=== PATIENT | female | born 1955 | race Caucasian/White ===

== ENCOUNTER 2020-06-05 14:37 | Inpatient (IN) | payer BC, SELFPAY ==
[2020-06-05] VITALS (23 sets, daily range): BP systolic 133–201; BP diastolic 60–95; PULSE 57–97; RESP 16–33; TEMP 36.4–37.1; O2SAT 88–100; BMI 26.4
[2020-06-05 15:38] LABS: Prothrombin Time 11.3 SECONDS (10.1-12.7)
[2020-06-05] MEDS: SODIUM CHLORIDE 0.9% 1,000 ML 1000 ML IV ×2 (15:40→17:19)
[2020-06-05] MEDS: ONDANSETRON 4 MG/2 ML INJ IV (15:40)
[2020-06-05 15:41] LABS: PTT Partial Thromboplastin Tim 18 SECONDS (26.4-36.2)
[2020-06-05 15:43] LABS: Add Manual Diff / Slide Review NO; Basophils Absolute Auto 0 /uL (0-100); Basophils Percent Auto 0.3 % (0-2); Eosinophils Absolute Auto 100 /uL (0-450); Eosinophils Percent Auto 0.4 % (2-4); Hematocrit 45.1 % (36-46); Hemoglobin 15.4 g/dL (12.0-16.0); Lymphocytes Absolute Auto 700 /uL (1100-4500); Lymphocytes Percent Auto 4.6 % (25-40); Mean Corpuscular HGB Conc 34.2 % (30-36); Mean Corpuscular Hemoglobin 30.9 PG (26-34); Mean Corpuscular Volume 90.6 fL (80-100); Monocytes Absolute Auto 400 /uL (0-900); Neutrophils Absolute Auto 13000 /uL (1500-7000); Neutrophils Percent Auto 91.7 % (50-75); Platelet Count 253 X10^3/uL (150-400); Red Blood Cell Count 4.98 X10^6/uL (4.0-5.2); Red Cell Distribution Width 13.8 % (11.6-14.8); White Blood Cell Count 14.2 X10^3/uL (4.5-11.0)
--- NOTE | 2020-06-05 16:05 | DI.US.S_ITS ---
PROCEDURE: US ABDOMEN LIMITED INDICATIONS: RIGHT UPPER QUADRANT PAIN TECHNIQUE: Real-time focused scanning was performed of the abdomen, with image documentation. COMPARISON: None. FINDINGS: The liver is normal in size and demonstrates no focal lesions. No findings of gallstones or sludge are seen. The gallbladder wall is not thickened, measuring 3 mm or less. No specific pericholecystic fluid is seen. The sonographic Aglvin sign is negative. There is no biliary dilatation, the common bile duct measures 5 mm. The pancreas is not well seen. A minimal amount of free fluid can be seen within the right upper quadrant and within the left lower quadrant. IMPRESSION: The gallbladder demonstrates a normal sonographic appearance. No biliary dilatation is seen. A minimal amount of ascites is seen. Dictated by: Dorian Tavarez M.D. on 06/05/2020 at 16:27 Approved by: Dorian Tavarez M.D. on 06/05/2020 at 16:28
[2020-06-05 16:24] LABS: Creatine Kinase 55 U/L (30-135)
[2020-06-05 16:29] LABS: RBC Urine None Seen (0-5/HPF)
[2020-06-05 16:30] LABS: Appearance Urine UA CLOUDY; Bilirubin Urine UA NEGATIVE (NEGATIVE); Color Urine UA YELLOW; Glucose Urine UA NEGATIVE (Negative); Ketones Urine UA 3+ (NEGATIVE); Leukocyte Esterase Urine UA 1+ (NEGATIVE); Nitrite Urine UA NEGATIVE (Negative); Occult Blood Urine UA TRACE-LYSED (Negative); Protein Urine UA 1+ (Negative); Specific Gravity Urine UA >=1.030 (1.000-1.035); Urobilinogen Urine UA 0.2 E.U./dL (0.2)
[2020-06-05 16:37] LABS: pH Urine UA 5.5 (4.5-8.0)
[2020-06-05 16:37] LABS: Troponin I 0.014 ng/mL (0.01-0.034)
[2020-06-05 16:39] LABS: Bacteria Urine Many (>30); Culture Indicated Urine Specimen Cultured; Squamous Epithelial Cell Urine 0-1 /HPF (0-5/HPF); WBC Urine 10-30/HPF (0-5/HPF)
[2020-06-05 16:43] LABS: Amylase 3418 U/L (30-110)
[2020-06-05 16:47] LABS: Alanine Aminotransferase 77 IU/L (<35); Albumin 4.5 g/dL (3.5-5.0); Alkaline Phosphatase 89 U/L (38-126); Aspartate Aminotransferase 92 IU/L (14-36); BUN Creatinine Ratio 22.2 (6-22); Bilirubin Total 0.8 mg/dL (0.2-1.3); Blood Urea Nitrogen 16 mg/dL (7-17); Calcium 9.5 mg/dL (8.4-10.2); Carbon Dioxide 28 mmol/L (22-32); Chloride 103 mmol/L (98-107); Estimated Glomerular Filt Rate > 60.0 mL/min (>60); Globulin 4.4 g/dL (1.7-4.1); Glucose 166 mg/dL (80-110); Potassium 4.3 mmol/L (3.4-5.1); Sodium 138 mmol/L (137-145); Total Protein 8.9 g/dL (6.3-8.2)
[2020-06-05 16:50] LABS: HEMOLYSIS 114 (0-50)
--- NOTE | 2020-06-05 17:13 | DI.CT.S_ITS ---
PROCEDURE: CT ABDOMEN PELVIS W CON INDICATIONS: elevated lipase, amylase, abd pain TECHNIQUE: After the administration of intravenous contrast, 5 mm thick sections acquired from the diaphragm to the symphysis. 5 mm coronal and sagittal reformats were acquired. For radiation dose reduction, the following was used: automated exposure control, adjustment of mA and/or kV according to patient size. COMPARISON: None. FINDINGS: Image quality: Excellent. ABDOMEN: Lung bases: Mild dependent atelectasis is seen. Heart size is normal. Solid organs: In this patient with this given history, scrutiny is given to the pancreas. Moderate inflammatory changes are seen surrounding the pancreas. The pancreas demonstrates normal enhancement, without necrotic areas. No pancreatic ductal dilatation is seen. No peripancreatic fluid collection can be seen. Liver is normal in size and enhancement. Gallbladder demonstrates no significant abnormality. Biliary system is non dilated. Pancreas enhances normally. Spleen is normal in size and enhancement. Incidental note is made of an accessory splenule along the inferior aspect of the primary spleen. Kidneys demonstrate normal size and enhancement, without hydronephrosis. A simple cyst is seen along the lateral aspect of the left kidney, that measures 2.1 cm. Left renal parapelvic cysts are also seen. Peritoneum and bowel: Bowel loops demonstrate normal wall thickness and caliber. No free air. Mild free fluid can be seen, primarily within the right upper quadrant and along the right-sided the abdomen. No loculated abscess can be seen. A normal appendix is incidentally noted. Nodes and vessels: No retroperitoneal or mesenteric adenopathy by size criteria. Aorta and inferior vena cava are normal in size. Miscellaneous: A mild periumbilical hernia is seen, containing fat. PELVIS: Genitourinary: Bladder wall thickness is normal. The uterus is abnormal, with an apparent 10.6 cm fibroid, which composed is the majority of the uterus itself. No cliff adnexal masses are seen. A pessary can be seen. Miscellaneous: No inguinal hernias or adenopathy. Bones: No suspicious bony lesions. No vertebral body compression fractures. Focal L5-S1 degenerative change is seen. Milder degenerative changes are seen elsewhere. IMPRESSION: Pancreatitis. No findings of pancreatic necrosis or loculated pseudocyst can be seen. There is a mild degree of ascites, which is likely related to the pancreatitis. Large fibroid uterus, with an associated pessary. Incidental note is made of: Simple appearing left renal cysts Accessory splenule Fat containing periumbilical hernia Focal L5-S1 degenerative change Normal appendix Dictated by: Dorian Tavarez M.D. on 06/05/2020 at 16:48 Approved by: Dorian Tavarez M.D. on 06/05/2020 at 16:54
[2020-06-05 17:31] LABS: Lipase 30032 U/L (23-300)
--- NOTE | 2020-06-05 19:05 | ED_ITS ---
HPI - Abdominal Pain <JARED Mukherjee - Last Filed: 06/05/20 20:04> General Chief Complaint: Abdominal Pain Stated Complaint: Stomach hurts, hot and cold flashes Time Seen by Provider: 06/05/20 14:41 Source: patient Mode of arrival: Ambulatory Limitations: no limitations History of Present Illness HPI narrative: The patient is a 64-year-old female nonsmoker with history of hypertension, tonsillectomy, ear tubes and vestibular migraines who presents with a chief complaint of abdominal pain. She has had epigastric abdominal pain on and off for the past few weeks, when she wakes up in the morning. Then it goes away. However this morning it did not go away. She has had epigastric pain since 5:00 a.m.. She complains of nausea, no vomiting, no fevers overall feels pretty run down. She states her last bowel movement was a few days ago which is normal for her and her bowel movements normal. She denies any dysuria urgency or frequency. She denies any history of abdominal surgeries or any abdominal specific medical history. She does not drink alcohol or use any illicit substances. She states overall she is ?pretty healthy.The patient is traveling from [place] at this point time. Related Data Home Medications Medication Instructions Recorded Confirmed amitriptyline 12.5 mg PO DAILY 06/05/20 06/05/20 erenumab-aooe [Aimovig 70 mg SUBCUT QMONTH 06/05/20 06/05/20 Autoinjector] losartan 06/05/20 meclizine 25 mg PO DAILY 06/05/20 06/05/20 Review of Systems <JARED Mukherjee - Last Filed: 06/05/20 20:04> Review of Systems Narrative: GENERAL: Denies chills, fatigue, malaise, fever, sweats. HEENT: Denies sinus pain, ear pain, sore throat, difficulty swallowing, dizziness. RESPIRATORY: Denies dyspnea, cough, wheezing, hemoptysis, sputum. CARDIOVASCULAR: Denies chest pain, palpitations, orthopnea, edema, GASTROINTESTINAL: See HPI : Denies dysuria, frequency, incontinence, hematuria, urinary retention. MUSCULOSKELETAL: denies weakness, joint pain, or bony pain SKIN: Denies rash, skin lesions, or other NEUROLOGIC: Denies weakness, headache, numbness, change in speech, confusion, seizures, incoordination. PSYCHIATRIC: No concerning psychosocial issues. 12 point review of systems is negative except for those stated above Patient History <JARED Mukherjee - Last Filed: 06/05/20 20:04> Medical History (Updated 06/05/20 @ 19:08 by AJRED Mukherjee) Vestibular migraine (Acute) Surgical History (Updated 06/05/20 @ 19:08 by JARED Mukherjee) Hx of tonsillectomy (Acute) Social History Smoking Status: Never smoker Smoking Status: Never smoker alcohol intake frequency: 0-2 drinks per day Substance Use Type: does not use Exam <JARED Mukherjee - Last Filed: 06/05/20 20:04> Narrative Exam Narrative: GENERAL: This is a well-nourished, well-developed patient, no acute distress HEAD: Atraumatic. Normocephalic. No temporal or scalp tenderness. EYES: Pupils equal round and reactive. Extraocular motions intact. No scleral icterus. No injection or drainage. ENT: Nose without bleeding, purulent drainage or septal hematoma. Throat without erythema, tonsillar hypertrophy or exudate. Uvula midline. Airway patent. NECK: Trachea midline. No JVD or lymphadenopathy. Supple, nontender, no meningeal signs. CARDIOVASCULAR: Regular rate and rhythm RESPIRATORY: Clear to auscultation. Breath sounds equal bilaterally. No wheezes, rales, or rhonchi. GASTROINTESTINAL: Abdomen soft, epigastric tenderness to palpation with right upper quadrant tenderness to palpation, nondistended. No hepato-splenomegaly, or palpable masses. Positive Galvin sign. EXTREMITIES: No clubbing, cyanosis, or edema. No joint tenderness, effusion, or edema noted. BACK: Nontender without deformity or crepitance. No flank tenderness. NEURO: AOx3. SKIN: No rash or erythema on visible skin Initial Vital Signs Initial Vital Signs: Vital Signs Pulse Oximetry 88 L 06/05/20 14:41 <Kelvin Agrawal DO - Last Filed: 06/05/20 20:19> Initial Vital Signs Initial Vital Signs: Vital Signs Pulse Oximetry 88 L 06/05/20 14:41 Scores <JARED Mukherjee - Last Filed: 06/05/20 20:04> GCS Kaylee coma scale eye opening: Spontaneous Fitzgerald coma scale verbal response: Orientated Kaylee coma scale motor response: Obey commands Fitzgerald coma scale total score: 15 Course <Varsha SimeonMARY dixon-BC - Last Filed: 06/05/20 20:04> Orders Ordered: ED Orders 06/05/20 14:56 EKG-12 Lead Stat 06/05/20 15:18 Partial Thromboplastin Time Stat Prothrombin Time INR Stat 06/05/20 15:36 Amylase Stat Complete Blood Count AUTO DIFF Stat Comprehensive Metabolic Panel Stat Lipase Stat Troponin & CK Cardiac Panel Stat 06/05/20 16:05 US abdomen limited Stat 06/05/20 16:14 Urinalysis and Microscopic Stat Urine Culture Stat 06/05/20 17:13 CT abdomen pelvis w con Stat Acetaminophen (Tylenol) 650 mg PO Q6HR PRN PRN Reason: Fever/Mild Pain (1-3) Bisacodyl (Dulcolax) 10 mg MA DAILY PRN PRN Reason: Constipation Dextrose (D50w) 25 gm IV PRN PRN; Protocol PRN Reason: Hypoglycemia Heparin Sodium (Porcine) (Heparin) 5,000 unit SUBCUT BID CHELSEA Sodium Chloride (Normal Saline 0.9%) 1,000 mls @ 250 mls/hr IV CONT CHELSEA Last Admin: 06/05/20 19:06 Dose: 250 mls/hr Documented by: BENITA Ceftriaxone Sodium/Dextrose (Rocephin) 1 gm in 50 mls @ 100 mls/hr IV NOW ONE Stop: 06/05/20 20:21 Last Admin: 06/05/20 20:02 Dose: 100 mls/hr Documented by: BENITA Sodium Chloride (Normal Saline 0.9%) 1,000 mls @ 150 mls/hr IV CONT CHELSEA Insulin Aspart (Novolog Flexpen) 0 unit SUBCUT ACHS CHELSEA; Protocol Ketorolac Tromethamine (Toradol) 15 mg IV Q6HR PRN PRN Reason: Pain, Moderate (4-6) Stop: 06/10/20 20:12 Naloxone HCl (Narcan) 0.2 mg IV Q2MIN PRN PRN Reason: Opiate Reversal Ondansetron HCl (Zofran) 4 mg IV Q6HR PRN PRN Reason: Nausea And Vomiting Discontinued Medications Sodium Chloride (Normal Saline 0.9%) 1,000 mls @ 1,000 mls/hr IV BOLUS ONE Stop: 06/05/20 15:55 Last Infusion: 06/05/20 16:51 Dose: 0 mls/hr Documented by: Admin: 06/05/20 15:40 Dose: 1,000 mls/hr Documented by: BENITA Sodium Chloride (Normal Saline 0.9%) 1,000 mls @ 1,000 mls/hr IV BOLUS ONE Stop: 06/05/20 18:12 Last Infusion: 06/05/20 19:01 Dose: 0 mls/hr Documented by: Admin: 06/05/20 17:19 Dose: 1,000 mls/hr Documented by: BENITA Ondansetron HCl (Zofran) 4 mg IV NOW ONE Stop: 06/05/20 14:57 Last Admin: 06/05/20 15:40 Dose: 4 mg Documented by: BENITA Vital Signs Vital signs: Vital Signs - 8 hr 06/05/20 14:41 06/05/20 14:42 06/05/20 14:44 Temperature 98.8 F Pulse Rate 60 60 Respiratory Rate 18 Blood Pressure 133/60 133/60 Pulse Oximetry 88 L 98 98 06/05/20 15:00 06/05/20 15:30 06/05/20 16:00 Temperature Pulse Rate 61 58 L 91 H Respiratory Rate 21 22 33 H Blood Pressure 144/65 H Pulse Oximetry 98 98 98 06/05/20 16:30 06/05/20 17:00 06/05/20 17:39 Temperature Pulse Rate 57 L 57 L 74 Respiratory Rate 21 16 25 H Blood Pressure Pulse Oximetry 100 99 06/05/20 18:00 06/05/20 18:13 06/05/20 18:19 Temperature Pulse Rate 74 77 62 Respiratory Rate 22 25 H 19 Blood Pressure 183/94 H 183/85 H Pulse Oximetry 99 100 99 06/05/20 18:30 06/05/20 18:40 06/05/20 19:00 Temperature Pulse Rate 97 H 86 76 Respiratory Rate 21 22 23 Blood Pressure 188/95 H 159/91 H Pulse Oximetry 99 99 99 06/05/20 19:30 06/05/20 19:31 06/05/20 20:00 Temperature Pulse Rate 74 64 68 Respiratory Rate 27 H 25 H 21 Blood Pressure 180/84 H 201/83 H Pulse Oximetry 99 100 <Kelvin Nghia, DO - Last Filed: 06/05/20 20:19> Orders Ordered: ED Orders 06/05/20 14:56 EKG-12 Lead Stat 06/05/20 15:18 Partial Thromboplastin Time Stat Prothrombin Time INR Stat 06/05/20 15:36 Amylase Stat Complete Blood Count AUTO DIFF Stat Comprehensive Metabolic Panel Stat Lipase Stat Troponin & CK Cardiac Panel Stat 06/05/20 16:05 US abdomen limited Stat 06/05/20 16:14 Urinalysis and Microscopic Stat Urine Culture Stat 06/05/20 17:13 CT abdomen pelvis w con Stat Acetaminophen (Tylenol) 650 mg PO Q6HR PRN PRN Reason: Fever/Mild Pain (1-3) Bisacodyl (Dulcolax) 10 mg MA DAILY PRN PRN Reason: Constipation Dextrose (D50w) 25 gm IV PRN PRN; Protocol PRN Reason: Hypoglycemia Heparin Sodium (Porcine) (Heparin) 5,000 unit SUBCUT BID CHELSEA Sodium Chloride (Normal Saline 0.9%) 1,000 mls @ 250 mls/hr IV CONT CHELSEA Last Admin: 06/05/20 19:06 Dose: 250 mls/hr Documented by: BENITA Ceftriaxone Sodium/Dextrose (Rocephin) 1 gm in 50 mls @ 100 mls/hr IV NOW ONE Stop: 06/05/20 20:21 Last Admin: 06/05/20 20:02 Dose: 100 mls/hr Documented by: BENITA Sodium Chloride (Normal Saline 0.9%) 1,000 mls @ 150 mls/hr IV CONT CHELSEA Insulin Aspart (Novolog Flexpen) 0 unit SUBCUT ACHS CHELSEA; Protocol Ketorolac Tromethamine (Toradol) 15 mg IV Q6HR PRN PRN Reason: Pain, Moderate (4-6) Stop: 06/10/20 20:12 Naloxone HCl (Narcan) 0.2 mg IV Q2MIN PRN PRN Reason: Opiate Reversal Ondansetron HCl (Zofran) 4 mg IV Q6HR PRN PRN Reason: Nausea And Vomiting Discontinued Medications Sodium Chloride (Normal Saline 0.9%) 1,000 mls @ 1,000 mls/hr IV BOLUS ONE Stop: 06/05/20 15:55 Last Infusion: 06/05/20 16:51 Dose: 0 mls/hr Documented by: Admin: 06/05/20 15:40 Dose: 1,000 mls/hr Documented by: BENITA Sodium Chloride (Normal Saline 0.9%) 1,000 mls @ 1,000 mls/hr IV BOLUS ONE Stop: 06/05/20 18:12 Last Infusion: 06/05/20 19:01 Dose: 0 mls/hr Documented by: Admin: 06/05/20 17:19 Dose: 1,000 mls/hr Documented by: BENITA Ondansetron HCl (Zofran) 4 mg IV NOW ONE Stop: 06/05/20 14:57 Last Admin: 06/05/20 15:40 Dose: 4 mg Documented by: BENITA Vital Signs Vital signs: Vital Signs - 8 hr 06/05/20 14:41 06/05/20 14:42 06/05/20 14:44 Temperature 98.8 F Pulse Rate 60 60 Respiratory Rate 18 Blood Pressure 133/60 133/60 Pulse Oximetry 88 L 98 98 06/05/20 15:00 06/05/20 15:30 06/05/20 16:00 Temperature Pulse Rate 61 58 L 91 H Respiratory Rate 21 22 33 H Blood Pressure 144/65 H Pulse Oximetry 98 98 98 06/05/20 16:30 06/05/20 17:00 06/05/20 17:39 Temperature Pulse Rate 57 L 57 L 74 Respiratory Rate 21 16 25 H Blood Pressure Pulse Oximetry 100 99 06/05/20 18:00 06/05/20 18:13 06/05/20 18:19 Temperature Pulse Rate 74 77 62 Respiratory Rate 22 25 H 19 Blood Pressure 183/94 H 183/85 H Pulse Oximetry 99 100 99 06/05/20 18:30 06/05/20 18:40 06/05/20 19:00 Temperature Pulse Rate 97 H 86 76 Respiratory Rate 21 22 23 Blood Pressure 188/95 H 159/91 H Pulse Oximetry 99 99 99 06/05/20 19:30 06/05/20 19:31 06/05/20 20:00 Temperature Pulse Rate 74 64 68 Respiratory Rate 27 H 25 H 21 Blood Pressure 180/84 H 201/83 H Pulse Oximetry 99 100 MDM - Abdominal Pain <Varsha Mahoney, [employer]- - Last Filed: 06/05/20 20:04> Differential Diagnosis Differential diagnosis: Likely abdominal pain, constipation, diverticulitis and pancreatitis Lab Data Result diagrams: 06/05/20 15:36 06/05/20 15:36 Labs: Lab Results 06/05/20 06/05/20 06/05/20 Range/Units 15:18 15:36 15:36 WBC 14.2 H (4.5-11.0) X10^3/uL RBC 4.98 (4.0-5.2) X10^6/uL Hgb 15.4 (12.0-16.0) g/dL Hct 45.1 (36-46) % MCV 90.6 (80-100) fL MCH 30.9 (26-34) PG MCHC 34.2 (30-36) % RDW 13.8 (11.6-14.8) % Plt Count 253 (150-400) X10^3/uL Neut % (Auto) 91.7 H (50-75) % Lymph % (Auto) 4.6 L (25-40) % Charlton % (Auto) 3.0 (3-14) % Eos % (Auto) 0.4 L (2-4) % Baso % (Auto) 0.3 (0-2) % Neut # (Auto) 20332 H (7347-6419) /uL Lymph # (Auto) 700 L (5763-7319) /uL Charlton # (Auto) 400 (0-900) /uL Eos # (Auto) 100 (0-450) /uL Baso # (Auto) 0 (0-100) /uL PT 11.3 (10.1-12.7) SECONDS INR 1.0 (0.9-1.3) APTT 18 L (26.4-36.2) SECONDS Sodium 138 (137-145) mmol/L Potassium 4.3 (3.4-5.1) mmol/L Chloride 103 (98-107) mmol/L Carbon Dioxide 28 (22-32) mmol/L BUN 16 (7-17) mg/dL Creatinine 0.72 (0.52-1.04) mg/dL Estimated GFR > 60.0 (>60) mL/min BUN/Creatinine Ratio 22.2 H (6-22) Glucose 166 H (80-110) mg/dL Calcium 9.5 (8.4-10.2) mg/dL Total Bilirubin 0.8 (0.2-1.3) mg/dL AST 92 H (14-36) IU/L ALT 77 H (<35) IU/L Alkaline Phosphatase 89 (38-126) U/L Total Creatine Kinase (30-135) U/L CK-MB (CK-2) CK-MB (CK-2) Rel Index Troponin I (0.01-0.034) ng/mL Total Protein 8.9 H (6.3-8.2) g/dL Albumin 4.5 (3.5-5.0) g/dL Globulin 4.4 H (1.7-4.1) g/dL Albumin/Globulin Ratio 1.0 (1.0-2.8) Amylase (30-110) U/L Lipase 82134 H (23-300) U/L Urine Color Urine Appearance Urine pH (4.5-8.0) Ur Specific [place] (1.000-1.035) Urine Protein (Negative) Urine Glucose (UA) (Negative) g/dL Urine Ketones (NEGATIVE) Urine Occult Blood (Negative) Urine Nitrate (Negative) Urine Bilirubin (NEGATIVE) Urine Urobilinogen (0.2) E.U./dL Ur Leukocyte Esterase (NEGATIVE) Urine RBC (0-5/HPF) Urine WBC (0-5/HPF) Ur Squamous Epith Cells (0-5/HPF) Urine Bacteria (None) Ur Culture Indicated? 06/05/20 06/05/20 Range/Units 15:36 16:14 WBC (4.5-11.0) X10^3/uL RBC (4.0-5.2) X10^6/uL Hgb (12.0-16.0) g/dL Hct (36-46) % MCV (80-100) fL MCH (26-34) PG MCHC (30-36) % RDW (11.6-14.8) % Plt Count (150-400) X10^3/uL Neut % (Auto) (50-75) % Lymph % (Auto) (25-40) % Charlton % (Auto) (3-14) % Eos % (Auto) (2-4) % Baso % (Auto) (0-2) % Neut # (Auto) (6212-4986) /uL Lymph # (Auto) (0823-2171) /uL Charlton # (Auto) (0-900) /uL Eos # (Auto) (0-450) /uL Baso # (Auto) (0-100) /uL PT (10.1-12.7) SECONDS INR (0.9-1.3) APTT (26.4-36.2) SECONDS Sodium (137-145) mmol/L Potassium (3.4-5.1) mmol/L Chloride (98-107) mmol/L Carbon Dioxide (22-32) mmol/L BUN (7-17) mg/dL Creatinine (0.52-1.04) mg/dL Estimated GFR (>60) mL/min BUN/Creatinine Ratio (6-22) Glucose (80-110) mg/dL Calcium (8.4-10.2) mg/dL Total Bilirubin (0.2-1.3) mg/dL AST (14-36) IU/L ALT (<35) IU/L Alkaline Phosphatase (38-126) U/L Total Creatine Kinase 55 (30-135) U/L CK-MB (CK-2) TNP CK-MB (CK-2) Rel Index TNP Troponin I 0.014 (0.01-0.034) ng/mL Total Protein (6.3-8.2) g/dL Albumin (3.5-5.0) g/dL Globulin (1.7-4.1) g/dL Albumin/Globulin Ratio (1.0-2.8) Amylase 3418 H (30-110) U/L Lipase (23-300) U/L Urine Color Yellow Urine Appearance Cloudy Urine pH 5.5 (4.5-8.0) Ur Specific [place] >=1.030 H (1.000-1.035) Urine Protein 1+ H (Negative) Urine Glucose (UA) Negative (Negative) g/dL Urine Ketones 3+ H (NEGATIVE) Urine Occult Blood Trace-lysed (Negative) Urine Nitrate Negative (Negative) Urine Bilirubin Negative (NEGATIVE) Urine Urobilinogen 0.2 (0.2) E.U./dL Ur Leukocyte Esterase 1+ H (NEGATIVE) Urine RBC None seen (0-5/HPF) Urine WBC 10-30/hpf H (0-5/HPF) Ur Squamous Epith Cells 0-1 /hpf (0-5/HPF) Urine Bacteria Many (>30) H (None) Ur Culture Indicated? Specimen cultured Imaging Data CT scan - abdomen/pelvis: Radiologist's Impression: [address] [place] [id number] Scan Report Signed Patient: Suki De Santiago MMR#: [id number] : 7Acct:[id number] Age/Sex: 64 / FDate of Service: 06/05/20 Loc: ED Accession Number: [id number] Procedure: CT abdomen pelvis w con Ordering Provider: Varsha Mahoney [employer] M[employer]-BC PROCEDURE: CT ABDOMEN PELVIS W CON INDICATIONS: elevated lipase, amylase, abd pain TECHNIQUE: After the administration of intravenous contrast, 5 mm thick sections acquired from the diaphragm to the symphysis. 5 mm coronal and sagittal reformats were acquired. For radiation dose reduction, the following was used: automated exposure control, adjustment of mA and/or kV according to patient size. COMPARISON: None. FINDINGS: Image quality: Excellent. ABDOMEN: Lung bases: Mild dependent atelectasis is seen. Heart size is normal. Solid organs: In this patient with this given history, scrutiny is given to the pancreas. Moderate inflammatory changes are seen surrounding the pancreas. The pancreas demonstrates normal enhancement, without necrotic areas. No pancreatic ductal dilatation is seen. No peripancreatic fluid collection can be seen. Liver is normal in size and enhancement. Gallbladder demonstrates no significant abnormality. Biliary system is non dilated. Pancreas enhances normally. Spleen is normal in size and enhancement. Incidental note is made of an accessory splenule along the inferior aspect of the primary spleen. Kidneys demonstrate normal size and enhancement, without hydronephrosis. A simple cyst is seen along the lateral aspect of the left kidney, that measures 2.1 cm. Left renal parapelvic cysts are also seen. Peritoneum and bowel: Bowel loops demonstrate normal wall thickness and caliber. No free air. Mild free fluid can be seen, primarily within the right upper quadrant and along the right-sided the abdomen. No loculated abscess can be seen. A normal appendix is incidentally noted. Nodes and vessels: No retroperitoneal or mesenteric adenopathy by size criteria. Aorta and inferior vena cava are normal in size. Miscellaneous: A mild periumbilical hernia is seen, containing fat. PELVIS: Genitourinary: Bladder wall thickness is normal. The uterus is abnormal, with an apparent 10.6 cm fibroid, which composed is the majority of the uterus itself. No cliff adnexal masses are seen. A pessary can be seen. Miscellaneous: No inguinal hernias or adenopathy. Bones: No suspicious bony lesions. No vertebral body compression fractures. Focal L5-S1 degenerative change is seen. Milder degenerative changes are seen elsewhere. IMPRESSION: Pancreatitis. No findings of pancreatic necrosis or loculated pseudocyst can be seen. There is a mild degree of ascites, which is likely related to the pancreatitis. Large fibroid uterus, with an associated pessary. Incidental note is made of: Simple appearing left renal cysts Accessory splenule Fat containing periumbilical hernia Focal L5-S1 degenerative change Normal appendix Dictated by: Dorian Tavarez M.D. on 06/05/2020 at 16:48 Approved by: Dorian Tavarez M.D. on 06/05/2020 at 16:54 US - abdomen: Radiologist's Impression: [address] [place] [address] Ultrasound Report Signed Patient: Suki De Santiago [facility]#: [id number] : 7Acct:[id number] Age/Sex: 64 / FDate of Service: 06/05/20 Loc: ED Accession Number: [id number] Procedure: US abdomen limited Ordering Provider: Varsha Mahoney PROCEDURE: US ABDOMEN LIMITED INDICATIONS: RIGHT UPPER QUADRANT PAIN TECHNIQUE: Real-time focused scanning was performed of the abdomen, with image documentation. COMPARISON: None. FINDINGS: The liver is normal in size and demonstrates no focal lesions. No findings of gallstones or sludge are seen. The gallbladder wall is not thickened, measuring 3 mm or less. No specific pericholecystic fluid is seen. The sonographic Galvin sign is negative. There is no biliary dilatation, the common bile duct measures 5 mm. The pancreas is not well seen. A minimal amount of free fluid can be seen within the right upper quadrant and within the left lower quadrant. IMPRESSION: The gallbladder demonstrates a normal sonographic appearance. No biliary dilatation is seen. A minimal amount of ascites is seen. Dictated by: Dorian Tavarez M.D. on 06/05/2020 at 16:27 Approved by: Dorian Tavarez M.D. on 06/05/2020 at 16:28 [facility] Narrative Medical decision making narrative: The patient is a 64-year-old female who presents with a chief complaint of abdominal pain since 5:00 a.m. this morning. She has had this pain on and off for the past few weeks to months. On exam she has right upper quadrant tenderness to palpation, so ultrasound was taken to rule out a gallbladder etiology. No gallstones were noted. She was noted to have elevated amylase lipase, so a CT abdomen pelvis was obtained to confirm diagnosis of pancreatitis. Patient has very elevated lipase at over 30,000. She is noted to have urine concerning for infection with bacteria, but has no dysuria urgency or frequency. Patient was given 2 L of IV fluid bolus in the emergency department, then started on IVF at 250 cc/hour. Spoke with Devon PALOMINO who kindly admitted the patient for inpatient stay for her pancreatitis. I agr eed to give Rocephin for urinary tract infection including bacteria in her urine. Discussed with patient she has no questions or concerns at expresses appreciation. Patient to be admitted inpatient by Devon PALOMINO. <Kelvni Agrawal, DO - Last Filed: 06/05/20 20:19> Lab Data Labs: Lab Results 06/05/20 06/05/20 06/05/20 Range/Units 15:18 15:36 15:36 WBC 14.2 H (4.5-11.0) X10^3/uL RBC 4.98 (4.0-5.2) X10^6/uL Hgb 15.4 (12.0-16.0) g/dL Hct 45.1 (36-46) % MCV 90.6 (80-100) fL MCH 30.9 (26-34) PG MCHC 34.2 (30-36) % RDW 13.8 (11.6-14.8) % Plt Count 253 (150-400) X10^3/uL Neut % (Auto) 91.7 H (50-75) % Lymph % (Auto) 4.6 L (25-40) % Charlton % (Auto) 3.0 (3-14) % Eos % (Auto) 0.4 L (2-4) % Baso % (Auto) 0.3 (0-2) % Neut # (Auto) 51844 H (7005-6599) /uL Lymph # (Auto) 700 L (6965-5726) /uL Charl[place] # (Auto) 400 (0-900) /uL Eos # (Auto) 100 (0-450) /uL Baso # (Auto) 0 (0-100) /uL PT 11.3 (10.1-12.7) SECONDS INR 1.0 (0.9-1.3) APTT 18 L (26.4-36.2) SECONDS Sodium 138 (137-145) mmol/L Potassium 4.3 (3.4-5.1) mmol/L Chloride 103 (98-107) mmol/L Carbon Dioxide 28 (22-32) mmol/L BUN 16 (7-17) mg/dL Creatinine 0.72 (0.52-1.04) mg/dL Estimated GFR > 60.0 (>60) mL/min BUN/Creatinine Ratio 22.2 H (6-22) Glucose 166 H (80-110) mg/dL Calcium 9.5 (8.4-10.2) mg/dL Total Bilirubin 0.8 (0.2-1.3) mg/dL AST 92 H (14-36) IU/L ALT 77 H (<35) IU/L Alkaline Phosphatase 89 (38-126) U/L Total Creatine Kinase (30-135) U/L CK-MB (CK-2) CK-MB (CK-2) Rel Index Troponin I (0.01-0.034) ng/mL Total Protein 8.9 H (6.3-8.2) g/dL Albumin 4.5 (3.5-5.0) g/dL Globulin 4.4 H (1.7-4.1) g/dL Albumin/Globulin Ratio 1.0 (1.0-2.8) Amylase (30-110) U/L Lipase 77292 H (23-300) U/L Urine Color Urine Appearance Urine pH (4.5-8.0) Ur Specific [place] (1.000-1.035) Urine Protein (Negative) Urine Glucose (UA) (Negative) g/dL Urine Ketones (NEGATIVE) Urine Occult Blood (Negative) Urine Nitrate (Negative) Urine Bilirubin (NEGATIVE) Urine Urobilinogen (0.2) E.U./dL Ur Leukocyte Esterase (NEGATIVE) Urine RBC (0-5/HPF) Urine WBC (0-5/HPF) Ur Squamous Epith Cells (0-5/HPF) Urine Bacteria (None) Ur Culture Indicated? 06/05/20 06/05/20 Range/Units 15:36 16:14 WBC (4.5-11.0) X10^3/uL RBC (4.0-5.2) X10^6/uL Hgb (12.0-16.0) g/dL Hct (36-46) % MCV (80-100) fL MCH (26-34) PG MCHC (30-36) % RDW (11.6-14.8) % Plt Count (150-400) X10^3/uL Neut % (Auto) (50-75) % Lymph % (Auto) (25-40) % Charl[place] % (Auto) (3-14) % Eos % (Auto) (2-4) % Baso % (Auto) (0-2) % Neut # (Auto) (6587-7683) /uL Lymph # (Auto) (4746-2400) /uL [place] # (Auto) (0-900) /uL Eos # (Auto) (0-450) /uL Baso # (Auto) (0-100) /uL PT (10.1-12.7) SECONDS INR (0.9-1.3) APTT (26.4-36.2) SECONDS Sodium (137-145) mmol/L Potassium (3.4-5.1) mmol/L Chloride (98-107) mmol/L Carbon Dioxide (22-32) mmol/L BUN (7-17) mg/dL Creatinine (0.52-1.04) mg/dL Estimated GFR (>60) mL/min BUN/Creatinine Ratio (6-22) Glucose (80-110) mg/dL Calcium (8.4-10.2) mg/dL Total Bilirubin (0.2-1.3) mg/dL AST (14-36) IU/L ALT (<35) IU/L Alkaline Phosphatase (38-126) U/L Total Creatine Kinase 55 (30-135) U/L CK-MB (CK-2) TNP CK-MB (CK-2) Rel Index TNP Troponin I 0.014 (0.01-0.034) ng/mL Total Protein (6.3-8.2) g/dL Albumin (3.5-5.0) g/dL Globulin (1.7-4.1) g/dL Albumin/Globulin Ratio (1.0-2.8) Amylase 3418 H (30-110) U/L Lipase (23-300) U/L Urine Color Yellow Urine Appearance Cloudy Urine pH 5.5 (4.5-8.0) Ur Specific [place] >=1.030 H (1.000-1.035) Urine Protein 1+ H (Negative) Urine Glucose (UA) Negative (Negative) g/dL Urine Ketones 3+ H (NEGATIVE) Urine Occult Blood Trace-lysed (Negative) Urine Nitrate Negative (Negative) Urine Bilirubin Negative (NEGATIVE) Urine Urobilinogen 0.2 (0.2) E.U./dL Ur Leukocyte Esterase 1+ H (NEGATIVE) Urine RBC None seen (0-5/HPF) Urine WBC 10-30/hpf H (0-5/HPF) Ur Squamous Epith Cells 0-1 /hpf (0-5/HPF) Urine Bacteria Many (>30) H (None) Ur Culture Indicated? Specimen cultured Discharge Plan Departure Admit Date/Time: 06/05/20 20:05 Admit Provider: Albert Hammond <Kelvin Agrawal, - Last Filed: 06/05/20 20:19> Cosign ED Attending Cosignature Attestation: Dr Agrawal Co-Sign Statement: I was available for consultation during this patient's emergency department visit. This chart is signed by myself for administrative purposes only. I did not have direct contact with this patient during this visit. They were seen independently by the APC.
[2020-06-05] MEDS: SODIUM CHLORIDE 0.9% 1,000 ML 250 ML IV (19:06)
[2020-06-05] MEDS: CEFTRIAXONE 1 GM/50 ML FROZ.PIGGY IV ×2 (20:02→22:13)
--- NOTE | 2020-06-05 20:18 | P.HP_ITS ---
History of Present Illness History of Present Illness Date Patient Seen: 06/05/20 Time Patient Seen: 20:42 Chief complaint: Stomach hurts, hot and cold flashes Narrative: Ms. Suki De Santiago is a 64-year-old female with a history of hypertension and vestibular migraines who presents to the ER for epigastric pain. The patient states she has been waking in the morning with epigastric pain for approximately 1 month that has been resolved by by eating. Today the patient experienced her typical pain but did not improve with eating and became progressively worse through the day was associated with nausea with no vomiting, chills and diaphoresis. The patient also reports her abdomen is more distended than typical and describes shallow respirations related to the pain. The patient has no prior history of similar episodes and no history of abdominal problems. She does not consume alcohol and has no history of diabetes. She does have a history of vestibular migraines reporting no recent headache and has dizziness and varying degrees from a subtle to pronounced on a daily basis. She has sustained no falls or trauma secondary to balance issues. She denies complaints of fevers or feeling hot and reports no known COVID-19 exposures. She denies complaints of chest pain or palpitations. She has shortness of breath breathing shallow due to pain. She is adverse to taking opiates due to side effects and making her ?feel fuzzy in the head?. She has no cough or wheezing. She complains of generalized abdominal tenderness in all quadrants an d as mentioned has nausea but no vomiting. Her last bowel movement was 2 days ago the which is her typical bowel habit. She denies urinary urgency, frequency or burning. She uses no assistive devices. Arrival to the ER the patient is afebrile with temperature 98.8?, heart rate of 60, blood pressure 133/80, respiratory rate of 18, saturating 98% on room air. Imaging was completed within on abdominal ultrasound which found no ductal dilatation and a normal gallbladder, pancreas was not well visualized. On CT of the abdomen and pelvis she is found to have pancreatitis with no evidence of ps eudocyst or necrosis, no ductal dilatation, mild ascites are noted believed related to acute pancreatitis. On laboratory analysis she has elevated white count of 14.2 with increased neutrophils at 91.7, hemoglobin 15.4, hematocrit of 45.1, platelets 200 of 53. She has a PT of 11.3, INR 1.0 and PTT of 18. On chemistry, her electrolytes are within normal limits she has a BUN of 16 and creatinine 0.72. Her nonfasting glucose is 166. She has a total bilirubin is 0.8, AST of 92, ALT of 77 and alkaline phosphatase of 89. She has an amylase elevated at 3448, lipase a 30,032 and a negative troponin at 0.014. On urinalysis her specific gravity is greater than 1.030, she is positive for ketones, white blood cells, bacteria, leukocyte esterase, trace blood and protein and negative for nitrites. In the ER the patient received 2 L of normal saline and IV normal saline at 250 cc/hour. She is given Rocephin 1 g IV for urinary tract infection. COVID-19 screening is initiated and the patient is a dmitted to the medicine service for acute pancreatitis. Patient History Medical History (Updated 06/05/20 @ 20:22 by JARED Mukherjee) Hypertension (Inactive) Vestibular migraine (Acute) Surgical History (Updated 06/05/20 @ 19:08 by JARED Mukherjee) Hx of tonsillectomy (Acute) Family & Social History Family History (Updated 06/05/20 @ 22:13 by GEORGETTE Rosen) Father Hypertension Mother No significant medical problems Grandmother Heart attack Grandfather Heart attack Safety & Behavioral: Feels Safe in Current Yes Environment Been Physically Hurt or No Threatened By a Person Tobacco & Substance use: Smoking Status Never smoker alcohol intake frequency 0-2 drinks per day Substance Use Type does not use Meds Home Medications and Allergies Home Medications Medication Instructions Recorded Confirmed Type amitriptyline 12.5 mg PO DAILY 06/05/20 06/05/20 History erenumab-aooe [Aimovig 70 mg SUBCUT QMONTH 06/05/20 06/05/20 History Autoinjector] estradiol 1 mg PO DAILY 06/05/20 06/05/20 History losartan See Rx Instructions .ROUTE .COMPLEX 06/05/20 06/05/20 History meclizine 25 mg PO DAILY 06/05/20 06/05/20 History progesterone 2 mg PO DAILY 06/05/20 06/05/20 History Review of Systems Review of Systems ROS: Yes All systems reviewed with the patient and are negative except as otherwise documented Exam Vital Signs (past 8 hours): - 06/05/20 14:41 06/05/20 14:42 06/05/20 14:44 Temperature 98.8 F Pulse Rate 60 60 Respiratory Rate 18 Blood Pressure 133/60 133/60 Pulse Oximetry 88 L 98 98 06/05/20 15:00 06/05/20 15:30 06/05/20 16:00 Temperature Pulse Rate 61 58 L 91 H Respiratory Rate 21 22 33 H Blood Pressure 144/65 H Pulse Oximetry 98 98 98 06/05/20 16:30 06/05/20 17:00 06/05/20 17:39 Temperature Pulse Rate 57 L 57 L 74 Respiratory Rate 21 16 25 H Blood Pressure Pulse Oximetry 100 99 06/05/20 18:00 06/05/20 18:13 06/05/20 18:19 Temperature Pulse Rate 74 77 62 Respiratory Rate 22 25 H 19 Blood Pressure 183/94 H 183/85 H Pulse Oximetry 99 100 99 06/05/20 18:30 06/05/20 18:40 06/05/20 19:00 Temperature Pulse Rate 97 H 86 76 Respiratory Rate 21 22 23 Blood Pressure 188/95 H 159/91 H Pulse Oximetry 99 99 99 06/05/20 19:30 06/05/20 19:31 06/05/20 20:00 Temperature Pulse Rate 74 64 68 Respiratory Rate 27 H 25 H 21 Blood Pressure 180/84 H 201/83 H Pulse Oximetry 99 100 Oxygen Delivery Method Room Air Narrative Exam Narrative: GENERAL APPEARANCE: well developed, well nourished, in no acute distress. HEENT: Normocephalic, PERRLA, conjunctiva clear, EOMs intact without nystagmus, no sinus tenderness to percussion, no rhinorrhea, mucous membranes are moist and pink without lesions or exudate. NECK/THYROID: neck supple, no JVD, no carotid bruit, no thyromegaly, trachea midline. LYMPH NODES: no cervical or supraclavicular lymphadenopathy. SKIN: [place], warm and dry, no visible lesions, rashes, ulcerations or petechiae. HEART: regular rate and rhythm, S1-S2, no murmur, no rubs or gallops, brisk capillary refill, no edema LUNGS: clear to auscultation bilaterally, no coarseness crackles or wheezing, no cough present CHEST: Symmetrical movement, no accessory muscle use, shall tidal volume. ABDOMEN: Firm, distended, no fluid wave appreciated, abdominal pain on palpation in all quadrants, slight guarding, no organomegaly, active bowel tones. EXTREMITIES: moves all extremities, strength is 5/5 and symmetrical, no deformities or joint effusions. NEUROLOGIC: AAO x4, no focal neurologic deficits, cranial nerves II-XII grossly intact, sensation intact to light touch, hearing grossly normal to speech. PSYCH: Flat affect, good eye contact, linear thought process, cooperative. Objective Labs Result Diagrams: 06/05/20 15:36 06/05/20 15:36 Labs: Laboratory Results - last 24 hr 06/05/20 06/05/20 06/05/20 15:18 15:36 15:36 WBC 14.2 H RBC 4.98 Hgb 15.4 Hct 45.1 MCV 90.6 MCH 30.9 MCHC 34.2 RDW 13.8 Plt Count 253 Neut % (Auto) 91.7 H Lymph % (Auto) 4.6 L [place] % (Auto) 3.0 Eos % (Auto) 0.4 L Baso % (Auto) 0.3 Neut # (Auto) 73113 H Lymph # (Auto) 700 L [place] # (Auto) 400 Eos # (Auto) 100 Baso # (Auto) 0 PT 11.3 INR 1.0 APTT 18 L Sodium 138 Potassium 4.3 Chloride 103 Carbon Dioxide 28 BUN 16 Creatinine 0.72 Estimated GFR > 60.0 BUN/Creatinine Ratio 22.2 H Glucose 166 H Calcium 9.5 Total Bilirubin 0.8 AST 92 H ALT 77 H Alkaline Phosphatase 89 Total Creatine Kinase CK-MB (CK-2) CK-MB (CK-2) Rel Index Troponin I Total Protein 8.9 H Albumin 4.5 Globulin 4.4 H Albumin/Globulin Ratio 1.0 Amylase Lipase 83331 H Urine Color Urine Appearance Urine pH Ur Specific [place] Urine Protein Urine Glucose (UA) Urine Ketones Urine Occult Blood Urine Nitrate Urine Bilirubin Urine Urobilinogen Ur Leukocyte Esterase Urine RBC Urine WBC Ur Squamous Epith Cells Urine Bacteria Ur Culture Indicated? 06/05/20 06/05/20 15:36 16:14 WBC RBC Hgb Hct MCV MCH MCHC RDW Plt Count Neut % (Auto) Lymph % (Auto) [place] % (Auto) Eos % (Auto) Baso % (Auto) Neut # (Auto) Lymph # (Auto) [place] # (Auto) Eos # (Auto) Baso # (Auto) PT INR APTT Sodium Potassium Chloride Carbon Dioxide BUN Creatinine Estimated GFR BUN/Creatinine Ratio Glucose Calcium Total Bilirubin AST ALT Alkaline Phosphatase Total Creatine Kinase 55 CK-MB (CK-2) TNP CK-MB (CK-2) Rel Index TNP Troponin I 0.014 Total Protein Albumin Globulin Albumin/Globulin Ratio Amylase 3418 H Lipase Urine Color Yellow Urine Appearance Cloudy Urine pH 5.5 Ur Specific [place] >=1.030 H Urine Protein 1+ H Urine Glucose (UA) Negative Urine Ketones 3+ H Urine Occult Blood Trace-lysed Urine Nitrate Negative Urine Bilirubin Negative Urine Urobilinogen 0.2 Ur Leukocyte Esterase 1+ H Urine RBC None seen Urine WBC 10-30/hpf H Ur Squamous Epith Cells 0-1 /hpf Urine Bacteria Many (>30) H Ur Culture Indicated? Specimen cultured Assessment & Plan Assessment & Plan narrative: This is a 64-year-old female patient who presents to the ER following 1 month of epigastric discomfort in the morning resolved a fter eating that today became unrelenting and progressively painful. Patient had associated symptoms of nausea without vomiting, chills and diaphoresis and abdominal distension. 1. Acute pancreatitis, present on admission, active. -no prior history of abdominal problems does not consume alcohol. -abdominal ultrasound shows normal gallbladder with no ductal dilatation, pancreas is not visualized. Abdominal CT finds pancreatitis no pseudocyst or necrosis, mild ascites bleed related to pancreatitis. -the patient has firm mildly distended abdomen with pain on palpation in all quadrants. -patient has elevated white count of 14.2 with increased neutrophils 91.7%. She has an amylase of 3000 448, lipase of 30,032, total bilirubin 0.8, AST of 92, ALT of 77 and alkaline phosphatase of 89. -patient will be NPO with normal saline at 125 mL per hour. -patient's CT findings of pancreatitis but also concern for distension and ascites with possible peritonitis. Will obtain procalcitonin. -patient has received Rocephin 1 g IV in the ER, will give an additional 1 g IV now and continue Rocephin 2 g every 24 hours. Will evaluate response if necessary broaden coverage. 2. Urinary tract infection, present on admission, active. -patient denies frequency urgency, burning or hematuria. -patient has an elevated white count 14.2 with increased neutrophil at 91.7 %. On urinalysis her specific gravity is greater than 1.030, positive for ketones, protein, leukocyte esterase, wbc's, bacteria and trace blood. -patient was started on 1 g of Rocephin IV with dose increased to 2 g as noted above. -patient has been hydrated 2 L of IV fluid in the emergency department, will continue normal saline 125 cc per hour. 3. Essential hypertension, chronic, stable. -history of hypertension taking losartan 50 mg/hydrochlorothiazide 12.5 mg daily. The patient reports her providers attempting to wean off hydrochlorothiazide. No presence of edema on exam. -upon arrival the patient had a blood pressure of 133/80 following 2 L of normal saline and IV normal saline at 250 cc/hour in the emergency department patient is a blood pressure of 201/84 upon arrival to acute care floor. -normal saline is reduced to 125 cc/hour while the patient is NPO. -the patient states she has not taken her losartan today, losartan 50 mg x 1 now. Continue losartan 50 mg daily. -ordered hydralazine 10 mg IV every 6 hours as needed for sustained systolic blood pressure greater than 180 or diastolic greater than 100. -will closely monitor blood pressure trends. 4. Vestibular migraines, chronic, stable. -patient denies complaints of headaches but has consistent vestibular manifestations described as disequilibrium that varies from slight to marked symptoms daily. No history of falls or trauma and uses no assistive devices. -will continue routine regimen of amitriptyline 12.5 mg daily, meclizine 25 mg daily. The patient also takes a vague every month with last dose 05/14/2020. VTE prophylaxis: SCDs, heparin IV fluid: Normal saline 125 cc/hour Diet: NPO Code status: Full code, she designates her sister to be surrogate decision maker and emergency contact. The patient is admitted to the hospital due to the severity of her symptoms, risk for complications and adverse events. The patient is admitted as an inpatient with expected length of stay to be greater than 2 midnights. COVID-19 COVID-19 status: Negative Result date/Date tested (Pos, Neg/Pending): 06/05/20 Scores GCS Kaylee coma scale eye opening: Spontaneous [place] coma scale verbal response: Orientated Kaylee coma scale motor response: Obey commands [place] coma scale total score: 15
[2020-06-05 20:28] LABS: Magnesium 1.9 mg/dL (1.6-2.3)
[2020-06-05 21:15] LABS: COVID19 -Nasal RAPID Negative (Negative)
[2020-06-05] MEDS: SODIUM CHLORIDE 0.9% 1,000 ML 150 ML IV (21:39)
[2020-06-05] MEDS: ACETAMINOPHEN 325 MG TABLET 650 MG PO (21:42)
[2020-06-05] MEDS: KETOROLAC 15 MG/ML VIAL IV (21:43)
[2020-06-05] MEDS: LOSARTAN 50 MG TABLET PO (21:47)
[2020-06-05] MEDS: HEPARIN 5,000 UNIT/ML VIAL 5000 UNIT SUBCUT (21:52)
[2020-06-05 22:23] LABS: Procalcitonin < 0.05 ng/mL (<0.5)
--- NOTE | 2020-06-05 22:49 | PC.NURSE ---
Patient still reporting pain in abdomen, now mainly on left side rather than centralized like previously, despite successful small bowel follow-thru this morning. Also requesting zofran for nausea but no emesis. Abdomen appears slightly distended, the patient says it looks huge, but is soft and patient is still having loose stools. Dr. Grossman is aware of patient's continued need for pain and nausea meds.
[2020-06-05] MEDS: HYDRALAZINE 20 MG/ML VIAL 10 MG IV (23:49)
[2020-06-06] VITALS (13 sets, daily range): BP systolic 133–152; BP diastolic 67–89; PULSE 83–104; RESP 14–24; TEMP 36.6–37.2; O2SAT 87–99
[2020-06-06] MEDS: OXYCODONE IR 5 MG TABLET PO (00:16)
[2020-06-06] MEDS: KETOROLAC 15 MG/ML VIAL IV ×4 (02:10→19:48)
[2020-06-06] MEDS: ONDANSETRON 4 MG/2 ML INJ IV (02:11)
--- NOTE | 2020-06-06 04:11 | PC.NURSE ---
Pt c/o of generalized abdominal pain that radiates to her R shoulder 05/30. States she did not want to take any pain relievers, but has, changed her mind. Order rec'd for Oxycodone - pt states this, didn't do much for the pain. Given tordol and zofran - pt sleeping soundly.
[2020-06-06 05:46] LABS: Alanine Aminotransferase 41 IU/L (<35); Albumin 3.2 g/dL (3.5-5.0); Alkaline Phosphatase 69 U/L (38-126); Aspartate Aminotransferase 42 IU/L (14-36); BUN Creatinine Ratio 16.9 (6-22); Bilirubin Total 0.5 mg/dL (0.2-1.3); Blood Urea Nitrogen 11 mg/dL (7-17); Calcium 7.5 mg/dL (8.4-10.2); Carbon Dioxide 26 mmol/L (22-32); Chloride 110 mmol/L (98-107); Estimated Glomerular Filt Rate > 60.0 mL/min (>60); Globulin 3.3 g/dL (1.7-4.1); Glucose 118 mg/dL (80-110); HEMOLYSIS < 15 (0-50); Potassium 3.7 mmol/L (3.4-5.1); Sodium 139 mmol/L (137-145); Total Protein 6.5 g/dL (6.3-8.2)
[2020-06-06 05:50] LABS: Add Manual Diff / Slide Review NO; Basophils Absolute Auto 0 /uL (0-100); Basophils Percent Auto 0.3 % (0-2); Eosinophils Absolute Auto 0 /uL (0-450); Eosinophils Percent Auto 0.1 % (2-4); Hematocrit 41.9 % (36-46); Hemoglobin 13.9 g/dL (12.0-16.0); Lymphocytes Absolute Auto 1000 /uL (1100-4500); Lymphocytes Percent Auto 7.5 % (25-40); Mean Corpuscular HGB Conc 33.1 % (30-36); Mean Corpuscular Hemoglobin 30.2 PG (26-34); Mean Corpuscular Volume 91.2 fL (80-100); Monocytes Absolute Auto 800 /uL (0-900); Monocytes Percent Auto 6.5 % (3-14); Neutrophils Absolute Auto 10900 /uL (1500-7000); Neutrophils Percent Auto 85.6 % (50-75); Platelet Count 235 X10^3/uL (150-400); Red Cell Distribution Width 13.8 % (11.6-14.8); White Blood Cell Count 12.7 X10^3/uL (4.5-11.0)
[2020-06-06 06:02] LABS: Procalcitonin < 0.05 ng/mL (<0.5)
[2020-06-06] MEDS: SODIUM CHLORIDE 0.9% 1,000 ML 125 ML IV ×2 (06:08→14:07)
[2020-06-06 08:19] LABS: Cholesterol 145 mg/dL (140-199); HDL Cholesterol 53 mg/dL (40-60); LDL Cholesterol Calculated 81 mg/dL (<100); Triglycerides 55 mg/dL (35-150)
[2020-06-06 08:22] LABS: Hemoglobin A1C% w Est Avg Glu 5.6 % (4.0-6.0)
[2020-06-06 08:35] LABS: Lipase 9037 U/L (23-300)
[2020-06-06] MEDS: estradioL 1 MG TABLET PO (09:26)
[2020-06-06] MEDS: MECLIZINE HCL 12.5 MG TABLET 25 MG PO (09:28)
[2020-06-06] MEDS: HEPARIN 5,000 UNIT/ML VIAL 5000 UNIT SUBCUT ×2 (09:28→20:00)
[2020-06-06] MEDS: LOSARTAN 50 MG TABLET PO (09:28)
--- NOTE | 2020-06-06 16:11 | PM.PN.1 ---
Subjective Subjective Date Patient Seen: 06/06/20 Interval history: Suki De Santiago is a 64-year-old female with a past medical history significant for hypertension, vestibular migraines, and menopause on hormone replacement therapy, who presented to the ED following 1 month of epigastric discomfort in the morning resolved after eating and became unrelenting and progressively painful with associated nausea, chills, diaphoresis and abdominal distension. The patient is resting in bed comfortably. She reports mildly increased abdominal distension. She continues to have mild epigastric abdominal pain but and is controlled with Toradol. Discussed pancreatitis and the most common causes. She denies alcohol use and there is no evidence of gallstones on abdominal CT or ultrasound. Her lipase improving with bowel rest and IV fluid hydration. She has no other complaints and denies headache, shortness of breath, chest pain, abdominal pain, nausea, vomiting, fever, chills, dysuria, diarrhea or constipation. She is voiding without difficulty. She has not had a BM since admission but has had very little PO intake. She is up ambulating with assistance. Exam Vital Signs (past 8 hours): - 06/06/20 09:41 06/06/20 12:00 06/06/20 13:01 Temperature 97.9 F Pulse Rate 90 Respiratory Rate 16 Blood Pressure 150/88 H Pulse Oximetry 97 93 98 Oxygen Delivery Method Room Air Oxygen Flow Rate 0 Narrative Exam Narrative: General: Older female sitting in bed and in no acute distress, well-developed, well-nourished, significantly flat affect but otherwise appropriately interactive. HEENT: Normocephalic, atraumatic. External ears without defect. Pupils equal, round, and reactive to light. Anicteric sclerae, moist conjunctivae, and no lid lag. Oropharynx free of erythema and cobble stoning with moist mucosa. Neck: Supple with full range of motion. No jugular venous distension. No lymphadenopathy or thyromegaly. Cardiovascular: Regular rate and rhythm without murmurs, rubs, or gallops appreciated Pulmonary: Clear to auscultation bilaterally without crackles, wheezes, or rhonchi. Normal respiratory effort with no use of accessory muscles. Abdomen: Soft, mild distension with slight fluid wave, mild tenderness to palpation in epigastrium, nondistended. No hepatosplenomegaly or masses appreciated. Extremities: No clubbing, cyanosis, or edema. Skin: Normal temperature, turgor, and texture; no rash, ulcers, or subcutaneous nodules appreciated. Neurological: Cranial nerves grossly intact. Psychiatric: Normal mood and significant flat affect. Alert and oriented to person, place, and time. Objective Labs Result Diagrams: 06/06/20 04:55 06/06/20 04:55 Labs: Laboratory Results - last 24 hr 06/05/20 06/05/20 06/05/20 15:36 15:36 15:36 WBC RBC Hgb Hct MCV MCH MCHC RDW Plt Count Neut % (Auto) Lymph % (Auto) [place] % (Auto) Eos % (Auto) Baso % (Auto) Neut # (Auto) Lymph # (Auto) [place] # (Auto) Eos # (Auto) Baso # (Auto) Sodium 138 Potassium 4.3 Chloride 103 Carbon Dioxide 28 BUN 16 Creatinine 0.72 Estimated GFR > 60.0 BUN/Creatinine Ratio 22.2 H Glucose 166 H Hemoglobin A1c Calcium 9.5 Magnesium 1.9 Total Bilirubin 0.8 AST 92 H ALT 77 H Alkaline Phosphatase 89 Total Creatine Kinase 55 CK-MB (CK-2) TNP CK-MB (CK-2) Rel Index TNP Troponin I 0.014 Total Protein 8.9 H Albumin 4.5 Globulin 4.4 H Albumin/Globulin Ratio 1.0 Triglycerides Cholesterol LDL Cholesterol, Calc HDL Cholesterol Amylase 3418 H Lipase 90880 H Procalcitonin Urine Color Urine Appearance Urine pH Ur Specific [place] Urine Protein Urine Glucose (UA) Urine Ketones Urine Occult Blood Urine Nitrate Urine Bilirubin Urine Urobilinogen Ur Leukocyte Esterase Urine RBC Urine WBC Ur Squamous Epith Cells Urine Bacteria Ur Culture Indicated? COVID-19 PCR 06/05/20 06/05/20 06/05/20 15:36 16:14 20:08 WBC RBC Hgb Hct MCV MCH MCHC RDW Plt Count Neut % (Auto) Lymph % (Auto) [place] % (Auto) Eos % (Auto) Baso % (Auto) Neut # (Auto) Lymph # (Auto) [place] # (Auto) Eos # (Auto) Baso # (Auto) Sodium Potassium Chloride Carbon Dioxide BUN Creatinine Estimated GFR BUN/Creatinine Ratio Glucose Hemoglobin A1c Calcium Magnesium Total Bilirubin AST ALT Alkaline Phosphatase Total Creatine Kinase CK-MB (CK-2) CK-MB (CK-2) Rel Index Troponin I Total Protein Albumin Globulin Albumin/Globulin Ratio Triglycerides Cholesterol LDL Cholesterol, Calc HDL Cholesterol Amylase Lipase Procalcitonin < 0.05 Urine Color Yellow Urine Appearance Cloudy Urine pH 5.5 Ur Specific [place] >=1.030 H Urine Protein 1+ H Urine Glucose (UA) Negative Urine Ketones 3+ H Urine Occult Blood Trace-lysed Urine Nitrate Negative Urine Bilirubin Negative Urine Urobilinogen 0.2 Ur Leukocyte Esterase 1+ H Urine RBC None seen Urine WBC 10-30/hpf H Ur Squamous Epith Cells 0-1 /hpf Urine Bacteria Many (>30) H Ur Culture Indicated? Specimen cultured COVID-19 PCR Negative 06/06/20 06/06/20 06/06/20 04:55 04:55 04:55 WBC 12.7 H RBC 4.60 Hgb 13.9 Hct 41.9 MCV 91.2 MCH 30.2 MCHC 33.1 RDW 13.8 Plt Count 235 Neut % (Auto) 85.6 H Lymph % (Auto) 7.5 L [place] % (Auto) 6.5 Eos % (Auto) 0.1 L Baso % (Auto) 0.3 Neut # (Auto) 30088 H Lymph # (Auto) 1000 L [place] # (Auto) 800 Eos # (Auto) 0 Baso # (Auto) 0 Sodium 139 Potassium 3.7 Chloride 110 H Carbon Dioxide 26 BUN 11 Creatinine 0.65 Estimated GFR > 60.0 BUN/Creatinine Ratio 16.9 Glucose 118 H Hemoglobin A1c Calcium 7.5 L Magnesium Total Bilirubin 0.5 AST 42 H ALT 41 H Alkaline Phosphatase 69 Total Creatine Kinase CK-MB (CK-2) CK-MB (CK-2) Rel Index Troponin I Total Protein 6.5 Albumin 3.2 L Globulin 3.3 Albumin/Globulin Ratio 1.0 Triglycerides Cholesterol LDL Cholesterol, Calc HDL Cholesterol Amylase Lipase Procalcitonin < 0.05 Urine Color Urine Appearance Urine pH Ur Specific [place] Urine Protein Urine Glucose (UA) Urine Ketones Urine Occult Blood Urine Nitrate Urine Bilirubin Urine Urobilinogen Ur Leukocyte Esterase Urine RBC Urine WBC Ur Squamous Epith Cells Urine Bacteria Ur Culture Indicated? COVID-19 PCR 06/06/20 06/06/20 08:07 08:07 WBC RBC Hgb Hct MCV MCH MCHC RDW Plt Count Neut % (Auto) Lymph % (Auto) [place] % (Auto) Eos % (Auto) Baso % (Auto) Neut # (Auto) Lymph # (Auto) [place] # (Auto) Eos # (Auto) Baso # (Auto) Sodium Potassium Chloride Carbon Dioxide BUN Creatinine Estimated GFR BUN/Creatinine Ratio Glucose Hemoglobin A1c 5.6 Calcium Magnesium Total Bilirubin AST ALT Alkaline Phosphatase Total Creatine Kinase CK-MB (CK-2) CK-MB (CK-2) Rel Index Troponin I Total Protein Albumin Globulin Albumin/Globulin Ratio Triglycerides 55 Cholesterol 145 LDL Cholesterol, Calc 81 HDL Cholesterol 53 Amylase Lipase 9037 H D Procalcitonin Urine Color Urine Appearance Urine pH Ur Specific [place] Urine Protein Urine Glucose (UA) Urine Ketones Urine Occult Blood Urine Nitrate Urine Bilirubin Urine Urobilinogen Ur Leukocyte Esterase Urine RBC Urine WBC Ur Squamous Epith Cells Urine Bacteria Ur Culture Indicated? COVID-19 PCR Assessment & Plan Assessment & Plan narrative: Suki De Santiago is a 64-year-old female with a past medical history significant for hypertension, vestibular migraines, and menopause on hormone replacement therapy, who presented to the ED following 1 month of epigastric discomfort in the morning resolved after eating and became unrelenting and progressively painful with associated nausea, chills, diaphoresis and abdominal distension. 1. Acute pancreatitis, present on admission. Active. -Etiology unclear. Patient denies alcohol use. No history of gallstones and no gallstones visualized on CT or ultrasound. Triglycerides normal at 55. There is rare incidence of estrogen causing intravascular thrombus and pancreatitis, as well as, losartan causing pancreatitis but less than 1% and very unlikely. -Initial lipase highly elevated at 30,032. Lipase trending down now 9037. Continue to monitor lipase daily. -LFT's not significantly abnormal with: Total bilirubin 0.8, AST of 92, ALT of 77 and alkaline phosphatase of 89. -Abdominal ultrasound demonstrated normal gallbladder with no ductal dilatation. -CT abdomen and pelvis with contrast demonstrated pancreatitis with mild ascites related to pancreatitis. No pseudocyst or necrosis. -Patient has been NPO for bowel rest and plan to slowly advance diet to clear liquids today. Continue IV fluid hydration with normal saline at 75 mL/hr. -Continue pain control with acetaminophen 650 mg every 6 hours as needed for mild pain, Toradol 50 mg every 4 hours as needed for mild pain, and oxycodone 5 mg every 4 hours as needed for severe pain. -If patient's pancreatitis or ascites worsens would consider further imaging with MRCP. 2. Possible urinary tract infection versus asymptomatic bacteriuria, present on admission. Active. -Patient denies dysuria, urgency, or hematuria. She does endorse frequency that she relates to her pessary and occasional hesitancy. -Initial WBC elevated at 14.2 and procalcitonin negative x2. WBC trending down now 12.7. Continue to monitor WBC daily. -Urinalysis appears grossly infected with urine culture pending. -Continue ceftriaxone 2 g IV daily pending urine culture identification and sensitivities. 3. Hypertension, chronic, present on admission. Stable. -History of hypertension taking losartan 50 mg/hydrochlorothiazide 12.5 mg daily. The patient reports her providers attempting to wean off hydrochlorothiazide. No presence of edema on exam. -Continue home losartan 50 mg daily. Ordered labetolol 10 mg IV every 6 hours as needed for sustained SBP >180 mmHg. -Continue to monitor blood pressure closely. 4. Vestibular migraines, chronic, present on admission. Stable. -Patient denies complaints of headaches but has consistent vestibular manifestations described as disequilibrium that varies from slight to marked symptoms daily. No history of falls or trauma and uses no assist device. -Continue home amitriptyline 12.5 mg daily and meclizine 25 mg daily. The patient also takes Aimovig every month with last dose 05/14/2020. Code status: Full code, she designates her sister to be surrogate decision maker and emergency contact VTE prophylaxis: Heparin, SCDs Disposition: Patient likely to discharge in several days once pancreatitis is resolving and diet has been advanced and tolerated. Quality VTE Deep Vein Thrombosis/Pulmonary Embolism Present on Admission: No
[2020-06-06] MEDS: AMITRIPTYLINE 10 MG TABLET 12.5 MG PO (19:39)
[2020-06-06] MEDS: LORATADINE 10 MG TABLET PO (21:10)
[2020-06-06] MEDS: CEFTRIAXONE 2 GM/50 ML FROZ.PIGGY IV (21:10)
[2020-06-06] MEDS: AMITRIPTYLINE 25 MG TABLET 12.5 MG PO (21:10)
[2020-06-06] MEDS: FUROSEMIDE 20 MG/2 ML VIAL IV (23:56)
[2020-06-07] VITALS (11 sets, daily range): BP systolic 140–151; BP diastolic 77–89; PULSE 95–110; RESP 16–20; TEMP 36.8–37.4; O2SAT 89–96
[2020-06-07] MEDS: KETOROLAC 15 MG/ML VIAL IV ×3 (00:20→16:59)
--- NOTE | 2020-06-07 05:16 | PC.NURSE ---
Pt had good UOP during shift. Reports that her breathing is feeling less labored and that her abdomen feels less bloated. Pt slept well most of night.
[2020-06-07 05:36] LABS: Add Manual Diff / Slide Review NO; Basophils Absolute Auto 100 /uL (0-100); Basophils Percent Auto 0.5 % (0-2); Eosinophils Absolute Auto 100 /uL (0-450); Eosinophils Percent Auto 0.4 % (2-4); Hematocrit 38.3 % (36-46); Hemoglobin 12.9 g/dL (12.0-16.0); Lymphocytes Absolute Auto 1200 /uL (1100-4500); Lymphocytes Percent Auto 6.9 % (25-40); Mean Corpuscular HGB Conc 33.8 % (30-36); Mean Corpuscular Hemoglobin 30.5 PG (26-34); Mean Corpuscular Volume 90.2 fL (80-100); Monocytes Absolute Auto 1300 /uL (0-900); Monocytes Percent Auto 7.4 % (3-14); Neutrophils Absolute Auto 14800 /uL (1500-7000); Neutrophils Percent Auto 84.8 % (50-75); Platelet Count 216 X10^3/uL (150-400); Red Blood Cell Count 4.24 X10^6/uL (4.0-5.2); White Blood Cell Count 17.5 X10^3/uL (4.5-11.0)
[2020-06-07 05:47] LABS: Alanine Aminotransferase 28 IU/L (<35); Albumin 3.1 g/dL (3.5-5.0); Alkaline Phosphatase 60 U/L (38-126); Aspartate Aminotransferase 30 IU/L (14-36); BUN Creatinine Ratio 14.8 (6-22); Bilirubin Total 0.5 mg/dL (0.2-1.3); Blood Urea Nitrogen 9 mg/dL (7-17); Calcium 6.8 mg/dL (8.4-10.2); Carbon Dioxide 27 mmol/L (22-32); Chloride 105 mmol/L (98-107); Estimated Glomerular Filt Rate > 60.0 mL/min (>60); Globulin 3.1 g/dL (1.7-4.1); Glucose 123 mg/dL (80-110); HEMOLYSIS < 15 (0-50); Magnesium 1.6 mg/dL (1.6-2.3); Potassium 3.2 mmol/L (3.4-5.1); Sodium 136 mmol/L (137-145); Total Protein 6.2 g/dL (6.3-8.2)
[2020-06-07 05:56] LABS: Lipase 2406 U/L (23-300)
[2020-06-07] MEDS: POTASSIUM CHLORIDE 20 MEQ TAB 40 MEQ PO ×2 (06:24→20:04)
[2020-06-07 07:54] LABS: Procalcitonin 0.07 ng/mL (<0.5)
[2020-06-07] MEDS: LOSARTAN 50 MG TABLET PO (08:33)
[2020-06-07] MEDS: CALCIUM CARBONATE 600 MG TABLET PO ×2 (08:33→20:05)
[2020-06-07] MEDS: MECLIZINE HCL 12.5 MG TABLET 25 MG PO (08:33)
[2020-06-07] MEDS: SODIUM CHLORIDE 0.9% FLUSH 10 ML IV ×2 (08:34→20:05)
[2020-06-07] MEDS: HEPARIN 5,000 UNIT/ML VIAL 5000 UNIT SUBCUT ×2 (08:34→20:05)
[2020-06-07] MEDS: AMITRIPTYLINE 25 MG TABLET 12.5 MG PO (08:40)
--- NOTE | 2020-06-07 09:06 | CM.DANOTE ---
DCP/Assessment: Reviewed chart. Patient is a 64yr old female admitted to [facility] with abdominal pain. Primary payor is 1)[employer] out of state. PCP is Dr. Marvin Ordoñez in [place]. Met with patient explained CM/SW role. Patient resting comfortably in bed at time of visit. Patient reports that she is in [place]. visiting her family when she became ill. Patient staying with her sister/Luz in [place], [place]. Patient reports that at baseline she is completely I in all ADL's. Patient drove to [place]. with her 2 dogs. Patient hopes to return when she is feeling better. In the meantime, patient plans to stay with her sister. Patient has MRCP scheduled for today. Patient denies any major health concerns other than migraines which she has had for years. CM team to follow closely for d/c planning needs. P: Anticipate home when stable. RIA Elena Discharge Planning/Care Management CM Discharge Assessment Start: 06/07/20 09:04 Freq: Status: Active Protocol: Document 06/07/20 09:04 JAYSON (Rec: 06/07/20 09:06 JAYSON [id number]) Discharge Planning Assessment Assigned Toll Line Repairer RIA Elena Contact Information Luz Estrella (sister) Advance Directives? No History Provided By Patient,Medical Record Has Patient been admitted in last 30 No days? Prior Living Arrangements House Household Members friend(s) Type of transporation used prior to Drives own vehicle admit Independent with ADL's Yes Is patient alert and oriented? Yes Barriers to Discharge No Whiteboard Updated in Patient Room with Yes name and ext. # of Toll Line Repairer Review Status In Process Next Review Type Continued Stay Review
--- NOTE | 2020-06-07 10:50 | P.PN_ITS ---
Subjective Subjective Date Patient Seen: 06/07/20 Interval history: Suki De Santiago is a 64-year-old female with a past medical history significant for hypertension, vestibular migraines, and menopause on hormone replacement therapy, who presented to the ED following 1 month of epigastric discomfort in the morning resolved after eating and became unrelenting and progressively painful with associated nausea, chills, diaphoresis and abdominal distension. The patient is resting in bed comfortably. Overnight the patient had increased abdominal distension and subjective shortness of breath. IV fluids were discontinued and she was given furosemide 20 mg IV x1 with good diuresis of approximately 1 L out. She continues to have moderate abdominal distention with shortness of breath that appears to be mechanical in nature and due to inability to completely expand diaphragms. She also has a dry cough and hoarseness. Plan to give IV diuresis and obtain chest x-ray. Leukocytosis is increasing and with abdominal distension plan for MRCP today. She has no other complaints and denies headache, chest pain, abdominal pain, nausea, vomiting, fever, chills, dysuria, diarrhea or constipation. She is voiding without difficulty. She has not had a BM since admission but has had very little PO intake. She is up ambulating with assistance. Exam Vital Signs (past 8 hours): - 06/07/20 05:00 06/07/20 07:45 06/07/20 07:50 Temperature 99.0 F Pulse Rate 100 H 98 H 98 H Respiratory Rate 18 16 16 Blood Pressure 149/80 H Pulse Oximetry 95 89 L 94 06/07/20 08:07 06/07/20 08:21 Temperature 98.3 F Pulse Rate 95 H Respiratory Rate 16 Blood Pressure 151/89 H Pulse Oximetry 95 94 Oxygen Delivery Method Nasal Cannula Oxygen Flow Rate 1 Narrative Exam Narrative: General: Older female sitting in bed and in no acute distress, well-developed, well-nourished, significantly flat affect but otherwise appropriately interactive. HEENT: Normocephalic, atraumatic. External ears without defect. Pupils equal, round, and reactive to light. Anicteric sclerae, moist conjunctivae, and no lid lag. Oropharynx free of erythema and cobble stoning with moist mucosa. Neck: Supple with full range of motion. No jugular venous distension. No lymphadenopathy or thyromegaly. Cardiovascular: Regular rhythm, tachycardic, without murmurs, rubs, or gallops appreciated. Pulmonary: Diminished throughout but clear to auscultation bilaterally without crackles, wheezes, or rhonchi. Patient has moderate Abdomen: Soft, moderate distension, mild tenderness to palpation in epigastrium and mid abdomen, bowel sounds present. No hepatosplenomegaly or masses appreciated. Extremities: No clubbing, cyanosis, or edema. Skin: Normal temperature, turgor, and texture; no rash, ulcers, or subcutaneous nodules appreciated. Neurological: Cranial nerves grossly intact. Psychiatric: Normal mood and significant flat affect. Alert and oriented to person, place, and time. Objective Labs Result Diagrams: 06/07/20 05:10 06/07/20 05:10 Labs: Laboratory Results - last 24 hr 06/07/20 06/07/20 06/07/20 05:10 05:10 05:10 WBC 17.5 H RBC 4.24 Hgb 12.9 Hct 38.3 MCV 90.2 MCH 30.5 MCHC 33.8 RDW 14.0 Plt Count 216 Neut % (Auto) 84.8 H Lymph % (Auto) 6.9 L [place] % (Auto) 7.4 Eos % (Auto) 0.4 L Baso % (Auto) 0.5 Neut # (Auto) 82888 H Lymph # (Auto) 1200 [place] # (Auto) 1300 H Eos # (Auto) 100 Baso # (Auto) 100 Sodium 136 L Potassium 3.2 L Chloride 105 Carbon Dioxide 27 BUN 9 Creatinine 0.61 Estimated GFR > 60.0 BUN/Creatinine Ratio 14.8 Glucose 123 H Calcium 6.8 L Magnesium 1.6 Total Bilirubin 0.5 AST 30 ALT 28 Alkaline Phosphatase 60 Total Protein 6.2 L Albumin 3.1 L Globulin 3.1 Albumin/Globulin Ratio 1.0 Lipase 2406 H D Procalcitonin 0.07 Assessment & Plan Assessment & Plan narrative: Suki De Santiago is a 64-year-old female with a past medical history significant for hypertension, vestibular migraines, and menopause on hormone replacement therapy, who presented to the ED following 1 month of epigastric discomfort in the morning resolved after eating and became unrelenting and progressively painful with associated nausea, chills, diaphoresis and abdominal distension. 1. Acute pancreatitis with mild ascites, present on admission. Resolving. -Etiology unclear. Patient denies alcohol use. No history of gallstones and no gallstones visualized on CT or ultrasound. Triglycerides normal at 55. LFTs normal. There is rare incidence of estrogen causing intravascular thrombus and pancreatitis, as well as, losartan causing pancreatitis but less than 1% and very unlikely. -Initial lipase highly elevated at 30,032. Lipase trending down now 2204. Continue to monitor lipase daily. -Abdominal ultrasound demonstrated normal gallbladder with no ductal dilatation. -CT abdomen and pelvis with contrast demonstrated pancreatitis with mild ascites related to pancreatitis. No pseudocyst or necrosis. -Continue to slowly advance diet clear liquids to low-fat/low residue diet. Discontinued fluids as patient became hypervolemic overnight with increasing ascites and shortness of breath. Received furosemide 20 mg IV x1 with good diuresis. Plan to continue gentle diuresis with furosemide 20 mg IV x1 today as diuretics can propagate pancreatitis. Continue to monitor electrolytes closely and replete as necessary. -Continue pain control with acetaminophen 650 mg every 6 hours as needed for mild pain, Toradol 50 mg every 4 hours as needed for mild pain, and oxycodone 5 mg every 4 hours as needed for severe pain. -Ordered MRCP, pending. 2. Probable asymptomatic bacteriuria, present on admission. Active. -Patient denies dysuria, urgency, or hematuria. She does endorse frequency that she relates to her pessary and occasional hesitancy. -Initial WBC elevated at 14.2 and procalcitonin negative x2. WBC trending down now 12.7. Continue to monitor WBC daily. -Urinalysis appeared grossly infected with urine culture preliminary growing mixed urogenital luna and possibly Gardnerella. -Discontinued ceftriaxone as patient has been adequately treated for UTI if present however appears to be asymptomatic bacteriuria. 3. Hypertension, chronic, present on admission. Stable. -History of hypertension taking losartan 50 mg/hydrochlorothiazide 12.5 mg daily. The patient reports her providers attempting to wean off hydrochlorothiazide. No presence of edema on exam. -Continue home losartan 50 mg daily. Ordered labetolol 10 mg IV every 6 hours as needed for sustained SBP >180 mmHg. -Continue to monitor blood pressure closely. 4. Vestibular migraines, chronic, present on admission. Stable. -Patient denies complaints of headaches but has consistent vestibular manifestations described as disequilibrium that varies from slight to marked symptoms daily. No history of falls or trauma and uses no assist device. -Continue home amitriptyline 12.5 mg daily and meclizine 25 mg daily. The pat ient also takes Aimovig every month with last dose 05/14/2020. 5. Menopause on hormone replacement therapy, chronic, present on admission. Stable. -Held estradiol and progesterone. Counseled the patient on cessation due to high risk of VTE especially in lieu of long distance traveling. Code status: Full code, she designates her sister to be surrogate decision maker and emergency contact VTE prophylaxis: Heparin, SCDs Disposition: Patient likely to discharge in several days as pancreatitis resolved, she is tolerating a diet and been adequately diuresed. Quality VTE Deep Vein Thrombosis/Pulmonary Embolism Present on Admission: No
[2020-06-07] MEDS: MAGNESIUM CHLORIDE 64 MG TABLET PO (11:08)
--- NOTE | 2020-06-07 12:51 | DI.RAD.S_ITS ---
PROCEDURE: XR CHEST 1V INDICATIONS: shortness of breath TECHNIQUE: One view of the chest was acquired. COMPARISON: [facility], CT, CT ABDOMEN PELVIS W CON, 06/05/2020, 17:18. FINDINGS: Surgical changes and devices: None. Lungs and pleura: Low lung volumes. Right greater than left basilar airspace opacities. This is increased compared to CT 06/05/2020. Blunting of the costophrenic angle suggestive of pleural effusions. No pneumothorax. Mediastinum: Mediastinal contours are partially obscured. Heart size is obscured. Bones and chest wall: Question of right posterior 10th rib fracture. This appears new compared to 06/05/2020. No suspicious bony lesions. Overlying soft tissues appear unremarkable. IMPRESSION: Right greater than left basilar airspace opacities which appear new compared to 2 days prior. Suspect small layering left effusions. Question of right posterior 10th rib fracture. Low lung volumes. When clinically feasible two-view chest radiograph would be helpful or if clinically indicated chest CT. Dictated by: Mario Franco M.D. on 06/07/2020 at 13:49 Approved by: Mario Franco M.D. on 06/07/2020 at 13:53
[2020-06-07] MEDS: FUROSEMIDE 20 MG/2 ML VIAL IV (13:06)
--- NOTE | 2020-06-07 14:12 | DI.MRI.S_ITS ---
PROCEDURE: MR ABDOME PELVIS WWO CON INDICATIONS: Large uterine mass TECHNIQUE: Coronal HASTE, sagittal breath-hold T2 FSE; axial 2-D FLASH in- and dmg-hy-buses, axial T1 FSE with fat saturation through the pelvis. Optional long- and short-axis uterine nonbreath-hold T2 FSE through the uterus. Sagittal or axial dynamic VIBE during IV gadolinium administration; postgadolinium axial and sagittal VIBE/2-D FLASH with fat saturation from the iliac crests to the symphysis. COMPARISON: [facility], US, US ABDOMEN LIMITED, 06/05/2020, 16:51. [facility], CT, CT ABDOMEN PELVIS W CON, 06/05/2020, 17:18. FINDINGS: Image quality: Fair. Lung bases: Small to moderate-sized bilateral pleural effusions. Uterus: Large heterogeneous uterine mass measuring 10.3 x 9.2 x 8.2 cm. Mass is circumscribed. Endometrium is compressed. Adnexa: No mass or cystic lesion. Urinary system: Several small left peripelvic cysts are again seen. No hydronephrosis. No solid mass or suspicious enhancement. Small simple left renal cyst. Bladder is unremarkable. Abdomen: Liver is unremarkable. Gallbladder is not distended. No gallstones seen. Mild edema surrounding the body and tail the pancreas. No loculated fluid collection. No pancreatic ductal dilatation. No splenomegaly. No adrenal nodule. Diverticulosis. Normal appendix. Trace free fluid, appears decreased. No adenopathy. No aortic aneurysm. Bones and soft tissues: No suspicious osseous lesion or signal abnormality. IMPRESSION: 1. Findings of interstitial edematous pancreatitis are again seen. No loculated peripancreatic fluid collection. No necrosis identified. 2. No pancreatic ductal dilatation. 3. Large heterogeneous uterine fibroid measuring 10.3 cm. 4. No ovarian mass or cystic lesion. No adenopathy. 5. Small to moderate-sized bilateral pleural effusions. 6. Mild ascites, decreased. Dictated by: Mario Franco M.D. on 06/07/2020 at 16:08 Approved by: Mario Franco M.D. on 06/07/2020 at 16:27
--- NOTE | 2020-06-07 14:59 | PC.NURSE ---
Day shift: Pt off unit for MRI.
[2020-06-08] VITALS (9 sets, daily range): BP systolic 124–152; BP diastolic 76–89; PULSE 99–119; RESP 16–18; TEMP 36.4–37.4; O2SAT 91–99
[2020-06-08 05:39] LABS: Add Manual Diff / Slide Review NO; Basophils Absolute Auto 100 /uL (0-100); Basophils Percent Auto 0.4 % (0-2); Eosinophils Absolute Auto 200 /uL (0-450); Eosinophils Percent Auto 0.8 % (2-4); Hematocrit 38.3 % (36-46); Hemoglobin 12.7 g/dL (12.0-16.0); Lymphocytes Absolute Auto 1400 /uL (1100-4500); Lymphocytes Percent Auto 7.8 % (25-40); Mean Corpuscular HGB Conc 33.1 % (30-36); Mean Corpuscular Hemoglobin 29.9 PG (26-34); Mean Corpuscular Volume 90.3 fL (80-100); Monocytes Absolute Auto 1500 /uL (0-900); Monocytes Percent Auto 7.8 % (3-14); Neutrophils Absolute Auto 15400 /uL (1500-7000); Neutrophils Percent Auto 83.2 % (50-75); Platelet Count 189 X10^3/uL (150-400); Red Blood Cell Count 4.24 X10^6/uL (4.0-5.2); Red Cell Distribution Width 13.6 % (11.6-14.8); White Blood Cell Count 18.6 X10^3/uL (4.5-11.0)
[2020-06-08 05:51] LABS: Alanine Aminotransferase 22 IU/L (<35); Albumin 3.1 g/dL (3.5-5.0); Albumin Globulin Ratio 0.9 (1.0-2.8); Alkaline Phosphatase 64 U/L (38-126); Aspartate Aminotransferase 27 IU/L (14-36); BUN Creatinine Ratio 18.6 (6-22); Blood Urea Nitrogen 11 mg/dL (7-17); Calcium 7.5 mg/dL (8.4-10.2); Carbon Dioxide 29 mmol/L (22-32); Chloride 101 mmol/L (98-107); Estimated Glomerular Filt Rate > 60.0 mL/min (>60); Globulin 3.3 g/dL (1.7-4.1); Glucose 114 mg/dL (80-110); HEMOLYSIS 17 (0-50); Magnesium 1.6 mg/dL (1.6-2.3); Potassium 3.3 mmol/L (3.4-5.1); Sodium 134 mmol/L (137-145); Total Protein 6.4 g/dL (6.3-8.2)
[2020-06-08 06:35] LABS: Procalcitonin 0.06 ng/mL (<0.5)
[2020-06-08 07:35] LABS: Lipase 482 U/L (23-300)
[2020-06-08] MEDS: MECLIZINE HCL 12.5 MG TABLET 25 MG PO (09:36)
[2020-06-08] MEDS: HEPARIN 5,000 UNIT/ML VIAL 5000 UNIT SUBCUT ×2 (09:36→21:48)
[2020-06-08] MEDS: LOSARTAN 50 MG TABLET PO (09:36)
[2020-06-08] MEDS: AMITRIPTYLINE 25 MG TABLET 12.5 MG PO (09:37)
[2020-06-08] MEDS: SODIUM CHLORIDE 0.9% FLUSH 10 ML IV ×3 (09:38→21:48)
--- NOTE | 2020-06-08 10:39 | PT.IIE ---
Current Diagnoses Acute pancreatitis without necrosis or infection, unspecified (06/05/20) Surgical History (Last Updated 06/05/20 @ 19:08 by MARY Mukherjee-) Hx of tonsillectomy (Acute) Medical History (Last Updated 06/05/20 @ 20:20 by GEORGETTE Rosen) Hypertension (Inactive) Vestibular migraine (Acute) Physical Therapy Inpatient Evaluation/Re-Eval M1 PT/OT-IP Prior Functional Status Start: 06/08/20 11:57 Freq: NEEDED Status: Active Protocol: Document 06/08/20 10:39 AB (Rec: 06/08/20 12:12 AB [id number]) Medical Review Prior Functional Status Medical History Reviewed Yes Communication able to make needs known Mobility and Gait pt stated that she is independent with all mobilities and ambulation without AD Prior Functional Level (Other details) pt lives in [place] and is here visiting Social History Household Members friend(s) Living Arrangements House Number of Floors (Floors) One Floor Number of Stairs To Enter/Railing? 5 steps with wide rails and can only hold on to one rail at a time pt is staying in a double wide trailer with a roommate but roommate works Home Environment High Toilet,Tub/Shower M2 PT-IP Current Condition Start: 06/08/20 11:57 Freq: NEEDED Status: Active Protocol: Document 06/08/20 10:39 AB (Rec: 06/08/20 12:12 AB [id number]) Physical Therapy Current Condition Current Condition Evaluation Date 06/08/20 Treatment Diagnosis pancreatitis; generalized weakness Onset Date 06/05/20 M3 PT-IP Subjective Start: 06/08/20 11:57 Freq: NEEDED Status: Active Protocol: Document 06/08/20 10:39 AB (Rec: 06/08/20 12:12 AB [id number]) Subjective Physical Therapy Visit Type Type Initial Evaluation Visit Start Time 10:39 Visit Stop Time 11:04 Total Visit Minutes 25 Number of PRIMER BOXER Visits 0 Physical Therapy Visit Comments Patient Comments pt is agreeable to do PT; stated that she is weak Therapy Pain Assessment Pain When Pain Assessed At Rest Location Head Intensity 3 Scale Used c/o a headache M4 PT-IP Mobility and Gait Start: 06/08/20 11:57 Freq: NEEDED Status: Active Protocol: Document 06/08/20 10:39 AB (Rec: 08/19/20 12:12 AB [email or web address]) PT-Bed Mobility Assessment Rolling Level of Assist Standby Assistance Supine to Sit Supine to Sit Standby Assistance Sit to Supine Sit to Supine Standby Assistance Scooting Scooting to Edge of Bed Standby Assistance PT-Transfer Assessment Sit to and From Stand Sit to and from Stand Standby Assistance,Use of Upper Extremities Equipment Transfer Assistive Device Gait Belt Orthotic/Prosthetic Devices or Brace: No Transfers Transfer Destination Toilet Transfer Technique ambulated without AD Transfer Ability Level of Assist Standby Assistance Comments Mobility Comments completed bed mobility supine to sit SBA. pt ambulated in room without AD SBA and requested to use the toilet and ambulated towards the toilet without AD SBA. able to complete toileting without assist. agreed to ambulate more and also do stairs. ambulated in the hallway ~ 300 ft without AD SBA. c/o feeling SOB and has to sit back down and unable to do stair climbing. assisted pt back to her room. O2 sat at RA 94%. pt requested to go back in bed. ambulated from w /c to bed SBA. completed sit to supine SBA. positioned pt in bed. call light and table placed within reach. Gait Assessment Gait Gait Assistance Required: Standby Assistance Distance (Feet) 300 Able to Maintain Weight Bearing Status Yes During Gait Assistive Devices Assistive Device None,Gait Belt Orthotic/Prosthetic Devices or Brace: No Factors Limiting Gait Function Factors Limiting Gait Function Decreased Activity Tolerance, Pain,Poor Balance,Respiratory Distress PT-Balance Assessment Sitting Balance and Reactions Static Sitting Balance Ability Normal Dynamic Sitting Balance Ability Normal Standing Balance and Reactions Static Standing Balance Ability Good Dynamic Standing Balance Ability Good Device Used without AD M5 PT-IP Objective Assessments Start: 06/08/20 11:57 Freq: NEEDED Status: Active Protocol: Document 06/08/20 10:39 AB (Rec: 06/08/20 12:12 AB [email or web address]) Orientation Orientation/Cognition Level of Alertness Alert Orientation Name,Place,Situation Safety Awareness Decreased Safety Awareness Gross Range of Motion Lower Extremity ROM Assessment Within Functional Limits Strength Lower Extremity Strength Assessment Within Functional Limits Coordination Assessment Gross Coordination Gross Coordination WNL Sensation Assessment Sensation Gross Sensation WNL Muscle Tone Muscle Tone WNL Yes M6 PT-IP Treatment Start: 06/08/20 11:57 Freq: NEEDED Status: Active Protocol: Document 06/08/20 10:39 AB (Rec: 06/08/20 12:12 AB [email or web address]) Physical Therapy Treatment Education Education Provided Safety M7 PT-IP Assessment and Plan Start: 06/08/20 11:57 Freq: NEEDED Status: Active Protocol: Document 06/08/20 10:39 AB (Rec: 06/08/20 12:12 AB [id number]) PT Summary Assessment and Plan Potential Rehabilitation Potential Good Status of Condition at Evaluation Stable Summary Impairments Pain,ROM,Strength,Balance, Cognition,Bed Mobility, Transfers,Gait,Activity Tolerance Assessment Summary pt requiring SBA with mobility without AD. c/o feeling SOB during session with O2 sat at 94% at room air. pt lives in [place] but currently staying with a roommate here in [place]. will conduct stair climbing training when appropriate. Goals Bed Mobility Goal Independent Transfer Goal Independent Gait Goal Independent Gait Distance 300 Other Goals up/down 5 steps 1 rail SBA Days to Meet Goals 5 Frequency of Treatment Frequency Of Treatment Once a Day Treatment Plan Physical Therapy Treatment Plan Bed Mobility Training,Transfer Training,Gait Training, Therapeutic Exercise,Balance Retraining,Discharge Planning, Neuromuscular Re-ed Recommendations To Nursing Amount of Assist Needed Standby Assistance Discharge Recommendations PT Discharge Recommendations Home with Assistance Transportation Needs at Discharge Private Vehicle
--- NOTE | 2020-06-08 10:40 | DIET.PN ---
Dietary Progress Note Assessment: 64y F admitted for acute pancreatitis referred to nutrition for same. HT: 154.9cm WT: 63.5kg BMI: 26.5 [place]: [place] admit 54030 H, today 482 H, A1c 5.6 This is pt's first pancreatitis, states she thinks sx started a month ago and got worse over time until it wrapped into her belly causing her to come to hospital. Pt reports last meal before admit was fresh crab and bahamian bread. Pt is [employer] and does not consume etoh. Usual Day: B: eggs, oatmeal c berries, bagel c cream cheese L: full fat yogurt, soup, sandwich D: mac n cheese, rice, egg, pork chop, chicken Drinks: Mountain Dew, water MNA: 14 normal Bhupendra: 21 Interventions: Discussed importance of letting pancreas heal for several weeks after d/c by consuming very low fat diet. Idea generated c pt ways to decrease fat intake. Pt will switch to skim milk and non-fat yogurt. Pt will limit cheese, fatty meats, and cooking oil. Pt will slowly add fat into her diet after 2w and contact health provider if sx return. Diet Order: Low Fat/Heart Healthy
[2020-06-08] MEDS: MAGNESIUM CHLORIDE 64 MG TABLET PO (11:38)
[2020-06-08] MEDS: POTASSIUM CHLORIDE 20 MEQ TAB 40 MEQ PO (11:39)
[2020-06-08] MEDS: FUROSEMIDE 20 MG/2 ML VIAL IV (11:48)
[2020-06-08] MEDS: KETOROLAC 15 MG/ML VIAL IV ×2 (11:55→16:48)
[2020-06-08] MEDS: DOCUSATE 100 MG CAPSULE PO ×2 (12:27→21:48)
[2020-06-08] MEDS: polyethylene glycoL 3350 17 GM POWD.PACK PO (12:27)
--- NOTE | 2020-06-08 14:00 | DI.RAD.S_ITS ---
PROCEDURE: XR CHEST 2V INDICATIONS: Cough/SOB with pancreatitis TECHNIQUE: 2 views of the chest were acquired. COMPARISON: [facility], CR, XR CHEST 1V, 06/07/2020, 12:56. FINDINGS: Surgical changes and devices: None. Lungs and pleura: Lung volumes are diminished bilaterally. Persistent bilateral pleural effusions. No pneumothorax. Patchy bibasilar opacities favored to represent atelectasis although concurrent airspace disease not excluded. Patchy medial lung base consolidations are present. . Mediastinum: Mediastinal contours are normal. Heart size is normal. Bones and chest wall: No suspicious bony abnormalities. Soft tissues appear unremarkable. IMPRESSION: 1. Persistent bilateral pleural effusions with associated compressive atelectasis. 2. Patchy bibasilar airspace opacities likely representing atelectasis although superimposed infectious process/pneumonia or aspiration not excluded. 3. Low lung volumes bilaterally. Dictated by: Jevon Pate M.D. on 06/08/2020 at 15:16 Approved by: Jevon Pate M.D. on 06/08/2020 at 15:20
[2020-06-08] MEDS: levoFLOXacin 250 MG TABLET 750 MG PO (16:46)
[2020-06-08] MEDS: ACETAMINOPHEN 325 MG TABLET 650 MG PO (16:49)
--- NOTE | 2020-06-08 19:40 | PC.NURSE ---
Addendum entered by Kasia Lees R.N. 06/08/20 22:57: Pt mostly sleeping in bed this evening shift. States headache pain is improved. No GI complaints. Taking low fat diet well. Anticipating discharge in a.m. per pt. Abdomen remains puffy, soft. Several bruises to abdomen s/p heparin injections. Original Note: Pt resting quietly in bed @ beginning of shift. Pt states per Dr. Frey will not be discharging today. PO levaquin given with explanation for action. Pt c/o headache and was medicated with tylenol and toradol as per request. I.S. available @ bedside and use encouraged. Pt with shallow respirations.
--- NOTE | 2020-06-08 21:19 | P.PN_ITS ---
Subjective Subjective Date Patient Seen: 06/08/20 Interval history: Suki De Santiago is a 64-year-old female with a past medical history significant for hypertension, vestibular migraines, and menopause on hormone replacement therapy, who presented to the ED following 1 month of epigastric discomfort in the morning resolved after eating and became unrelenting and progressively painful with associated nausea, chills, diaphoresis and abdominal distension. The patient is resting in bed comfortably. She reports coughing and inabilty to take a full breath in without cough. Her leukocytosis is worsening but procalcitonin remains negative. She is slightly tachycardic HR 100-110. Plan to obtain 2 view chest xray and likely treat for pneumonia. Her MRCP was unrevealing for etiology of pancreatitis which is resolving clinically. She continues to have mild abdominal distention and ascites but improved on exam and MRCP. Her abdominal pain has resolved and her lipase has nearly normalized. Continue to advance diet to low fat, low residue diet. She has no other complaints and denies headache, rhinitis, sore throat, shortness of breath, chest pain, abdominal pain, nausea, vomiting, fever, chills, dysuria, or diarrhea. She has not had a BM since admission and is starting to feel c onstipated. Plan to implement bowel regimen. She is voiding without difficulty. She is up ambulating with assistance. Exam Vital Signs (past 8 hours): - 06/08/20 16:00 06/08/20 20:43 Temperature 98.7 F 97.6 F Pulse Rate 99 H 101 H Respiratory Rate 17 16 Blood Pressure 149/88 H 124/76 Pulse Oximetry 96 Oxygen Delivery Method Room Air Oxygen Flow Rate 0 Narrative Exam Narrative: General: Older female sitting in bed and in no acute distress, well-developed, well-nourished, significantly flat affect but otherwise appropriately interactive. HEENT: Normocephalic, atraumatic. External ears without defect. Pupils equal, round, and reactive to light. Anicteric sclerae, moist conjunctivae, and no lid lag. Oropharynx free of erythema and cobble stoning with moist mucosa. Neck: Supple with full range of motion. No jugular venous distension. No lymphadenopathy or thyromegaly. Cardiovascular: Regular rhythm, tachycardic, without murmurs, rubs, or gallops appreciated. Pulmonary: Diminished throughout but clear to auscultation bilaterally with decreased breath sounds at bases bilaterally without crackles, wheezes, or rhonchi. Patient has cough with deep breathing and splinting. Abdomen: Soft, mild distension,tenderness resolved, bowel sounds present. No hepatosplenomegaly or masses appreciated. Extremities: No clubbing, cyanosis, or edema. Skin: Normal temperature, turgor, and texture; no rash, ulcers, or subcutaneous nodules appreciated. Neurological: Cranial nerves grossly intact. Psychiatric: Normal mood and significant flat affect. Alert and oriented to person, place, and time. Objective Labs Result Diagrams: 06/08/20 05:20 06/08/20 05:20 Labs: Laboratory Results - last 24 hr 06/08/20 06/08/20 06/08/20 05:20 05:20 05:20 WBC 18.6 H RBC 4.24 Hgb 12.7 Hct 38.3 MCV 90.3 MCH 29.9 MCHC 33.1 RDW 13.6 Plt Count 189 Neut % (Auto) 83.2 H Lymph % (Auto) 7.8 L [place] % (Auto) 7.8 Eos % (Auto) 0.8 L Baso % (Auto) 0.4 Neut # (Auto) 99191 H Lymph # (Auto) 1400 [place] # (Auto) 1500 H Eos # (Auto) 200 Baso # (Auto) 100 Sodium 134 L Potassium 3.3 L Chloride 101 Carbon Dioxide 29 BUN 11 Creatinine 0.59 Estimated GFR > 60.0 BUN/Creatinine Ratio 18.6 Glucose 114 H Calcium 7.5 L Magnesium 1.6 Total Bilirubin 1.0 AST 27 ALT 22 Alkaline Phosphatase 64 Total Protein 6.4 Albumin 3.1 L Globulin 3.3 Albumin/Globulin Ratio 0.9 L Lipase Procalcitonin 0.06 06/08/20 07:27 WBC RBC Hgb Hct MCV MCH MCHC RDW Plt Count Neut % (Auto) Lymph % (Auto) [place] % (Auto) Eos % (Auto) Baso % (Auto) Neut # (Auto) Lymph # (Auto) [place] # (Auto) Eos # (Auto) Baso # (Auto) Sodium Potassium Chloride Carbon Dioxide BUN Creatinine Estimated GFR BUN/Creatinine Ratio Glucose Calcium Magnesium Total Bilirubin AST ALT Alkaline Phosphatase Total Protein Albumin Globulin Albumin/Globulin Ratio Lipase 482 H D Procalcitonin Assessment & Plan Assessment & Plan narrative: Suki De Santiago is a 64-year-old female with a past medical history significant for hypertension, vestibular migraines, and menopause on hormone replacement therapy, who presented to the ED following 1 month of epigastric discomfort in the morning resolved after eating and became unrelenting and progressively painful with associated nausea, chills, diaphoresis and abdominal distension. 1. Acute idopathic pancreatitis with mild ascites, present on admission. Resolving. -Etiology unclear. Patient denies alcohol use. No history of gallstones and no gallstones visualized on CT or ultrasound. Triglycerides normal at 55. LFTs no rmal. There is rare incidence of estrogen causing intravascular thrombus and pancreatitis, as well as, losartan causing pancreatitis but less than 1% and very unlikely. -Initial lipase highly elevated at 30,032. Lipase trending down now 2204. Continue to monitor lipase daily. -Abdominal ultrasound demonstrated normal gallbladder with no ductal dilatation. -CT abdomen and pelvis with contrast demonstrated pancreatitis with mild ascites related to pancreatitis. No pseudocyst or necrosis. -Continue to slowly advance diet to low-fat/low residue diet. -Discontinued IV fluids due to hypervolemia and increasing ascites and shortness of breath. Received furosemide 20 mg IV x 2 with continued good diuresis of 3 L with net + 3 L. Continue gentle diuresis with furosemide 20 mg IV x1 today as diuretics can propagate pancreatitis. Continue to monitor electrolytes closely and replete as necessary. -Continue pain control with acetaminophen 650 mg every 6 hours as needed for mild pain, Toradol 50 mg every 4 hours as needed for mild pain, and oxycodone 5 mg every 4 hours as needed for severe pain. -MRCP extending to pelvis to assess uterus demonstrated 2. Probable bacterial pneumonia, secondary to pancreatitis, unclear if present on admission. Active. -Patient continued to have worsening leukocytosis, became tachycardic, with new cough, with chest x-ray demonstrating blunted costophrenic angles and possibly early developing pneumonia. Pneumonia secondary to splinting from pain of panc reatitis and secondary inflammation. Continue diuresis as above for hypervolemia from IV fluids. -Started and continue levofloxacin 750 mg daily. -COVID-19 negative. 3. Probable asymptomatic bacteriuria, present on admission. Stable. -Patient denies dysuria, urgency, or hematuria. She does endorse frequency that she relates to her pessary and occasional hesitancy. -Initial WBC elevated at 14.2 and procalcitonin negative x2. WBC trending down now 12.7. Continue to monitor WBC daily. -Urinalysis appeared grossly infected with urine culture preliminary growing mixed urogenital luna and possibly Gardnerella. -Discontinued ceftriaxone as patient has been adequately treated for UTI which is unlikely as urine culture had no growth and appears to be asymptomatic bacteriuria. 4. Hypertension, chronic, present on admission. Stable. -History of hypertension taking losartan 50 mg/hydrochlorothiazide 12.5 mg daily. The patient reports her providers attempting to wean off hydrochlorothiazide. No presence of edema on exam. -Continue home losartan 50 mg daily. Ordered labetolol 10 mg IV every 6 hours as needed for sustained SBP >180 mmHg. -Continue to monitor blood pressure closely. 5. Vestibular migraines, chronic, present on admission. Stable. -Patient denies complaints of headaches but has consistent vestibular manifestations described as disequilibrium that varies from slight to marked symptoms daily. No history of falls or trauma and uses no assist device. -Continue home amitriptyline 12.5 mg daily and meclizine 25 mg daily. The patient also takes Aimovig every month with last dose 05/14/2020. 6. Menopause on hormone replacement therapy, chronic, present on admission. Stable. -Held estradiol and progesterone. Counseled the patient on cessation due to high risk of VTE especially in lieu of long distance traveling. Code status: Full code, she designates her sister to be surrogate decision maker and emergency contact VTE prophylaxis: Heparin, SCDs Disposition: Patient likely to discharge in 1-2 days as pancreatitis resolves, she has been adequately diuresed., tolerating a diet and treatment of pneumonia. Quality VTE Deep Vein Thrombosis/Pulmonary Embolism Present on Admission: No
[2020-06-09] VITALS (7 sets, daily range): BP systolic 146; BP diastolic 83–87; PULSE 90–108; RESP 16–20; TEMP 35.9–37.7; O2SAT 88–98
[2020-06-09] MEDS: ACETAMINOPHEN 325 MG TABLET 650 MG PO ×2 (01:36→09:11)
--- NOTE | 2020-06-09 02:35 | PC.NURSE ---
Addendum entered by Tyra Carbone R.N. 06/09/20 06:30: Noted weight to be up 2.67kg so will rezero bed next time patient is up and reweigh to verify. Original Note: Patient seen and assessed at 0103. Is alert and oriented. Breath sounds CTA but respirations are shallow and RA found to be 88%. Placed on oxygen at 1L/min per NC with sat improving to 93%. Does reports some abdominal discomfort when taking deep breaths. HRR; telemetry reading was SR. Denies nausea. BT present and abdomen is soft. Denies dysuria, frequency or urgency with urination. Is able to move self in bed. Is provided SBA when up to bathroom for safety. Refusing to wear SCD's so reminded to ankle wave and patient verbalizes understanding. At 0136 complained of 4/10 headache and upper abdominal pain so was medicated with Tylenol (refusing Oxycodone). Fall risk score is moderate; patient reminded to call for assistance when getting out of bed and verbalizes agreement to do so.
[2020-06-09 05:36] LABS: Add Manual Diff / Slide Review NO; Basophils Absolute Auto 100 /uL (0-100); Basophils Percent Auto 0.6 % (0-2); Eosinophils Absolute Auto 300 /uL (0-450); Eosinophils Percent Auto 1.9 % (2-4); Hematocrit 35.6 % (36-46); Hemoglobin 12.1 g/dL (12.0-16.0); Lymphocytes Absolute Auto 1100 /uL (1100-4500); Lymphocytes Percent Auto 7.1 % (25-40); Mean Corpuscular HGB Conc 34.1 % (30-36); Mean Corpuscular Hemoglobin 30.7 PG (26-34); Mean Corpuscular Volume 90.1 fL (80-100); Monocytes Absolute Auto 1400 /uL (0-900); Monocytes Percent Auto 8.8 % (3-14); Neutrophils Absolute Auto 13000 /uL (1500-7000); Neutrophils Percent Auto 81.6 % (50-75); Platelet Count 200 X10^3/uL (150-400); Red Blood Cell Count 3.95 X10^6/uL (4.0-5.2); Red Cell Distribution Width 13.6 % (11.6-14.8); White Blood Cell Count 15.9 X10^3/uL (4.5-11.0)
[2020-06-09 05:48] LABS: Alanine Aminotransferase 19 IU/L (<35); Albumin Globulin Ratio 0.9 (1.0-2.8); Alkaline Phosphatase 71 U/L (38-126); Aspartate Aminotransferase 22 IU/L (14-36); BUN Creatinine Ratio 18.5 (6-22); Bilirubin Total 0.9 mg/dL (0.2-1.3); Blood Urea Nitrogen 12 mg/dL (7-17); Calcium 7.8 mg/dL (8.4-10.2); Carbon Dioxide 28 mmol/L (22-32); Chloride 101 mmol/L (98-107); Estimated Glomerular Filt Rate > 60.0 mL/min (>60); Globulin 3.3 g/dL (1.7-4.1); Glucose 127 mg/dL (80-110); HEMOLYSIS < 15 (0-50); Magnesium 1.8 mg/dL (1.6-2.3); Potassium 3.9 mmol/L (3.4-5.1); Sodium 133 mmol/L (137-145); Total Protein 6.3 g/dL (6.3-8.2)
[2020-06-09 07:57] LABS: Lipase 273 U/L (23-300)
[2020-06-09] MEDS: HEPARIN 5,000 UNIT/ML VIAL 5000 UNIT SUBCUT (09:14)
[2020-06-09] MEDS: polyethylene glycoL 3350 17 GM POWD.PACK PO (09:14)
[2020-06-09] MEDS: MECLIZINE HCL 12.5 MG TABLET 25 MG PO (09:14)
[2020-06-09] MEDS: DOCUSATE 100 MG CAPSULE PO (09:15)
[2020-06-09] MEDS: LOSARTAN 50 MG TABLET PO (09:15)
[2020-06-09] MEDS: SODIUM CHLORIDE 0.9% FLUSH 10 ML IV ×2 (09:16→11:38)
[2020-06-09] MEDS: AMITRIPTYLINE 25 MG TABLET 12.5 MG PO (09:25)
--- NOTE | 2020-06-09 11:12 | PT.IPTN ---
Current Diagnoses Acute pancreatitis without necrosis or infection, unspecified (06/05/20) Physical Therapy Treatment Note M2 PT-IP Current Condition Start: 06/08/20 11:57 Freq: NEEDED Status: Active Protocol: Document 06/08/20 10:39 AB (Rec: 06/08/20 12:12 AB [email or web address]) Physical Therapy Current Condition Current Condition Evaluation Date 06/08/20 Treatment Diagnosis pancreatitis; generalized weakness Onset Date 06/05/20 M3 PT-IP Subjective Start: 06/08/20 11:57 Freq: NEEDED Status: Active Protocol: Document 06/09/20 10:55 SP (Rec: 06/09/20 11:45 SP [id number]) Subjective Physical Therapy Visit Type Type Treatment Note Visit Start Time 10:55 Visit Stop Time 11:12 Total Visit Minutes 17 Number of CORN CUTTER OPERATOR Visits 1 Physical Therapy Visit Comments Patient Comments Pt agreeable to working with therapy. I am doing ok, wobbling around. I still challenged with breathing rate when walking and find self coughing, challenged more with my mask. Therapy Pain Assessment Pain Present Pain Present Denied Pain M4 PT-IP Mobility and Gait Start: 06/08/20 11:57 Freq: NEEDED Status: Active Protocol: Document 06/09/20 10:55 SP (Rec: 06/09/20 11:45 SP [id number]) PT-Bed Mobility Assessment Rolling Type of Rolling Log Rolling Level of Assist Independent Sit to Supine Sit to Supine Independent Scooting Scooting to Edge of Bed Independent PT-Transfer Assessment Sit to and From Stand Sit to and from Stand Standby Assistance,Use of Upper Extremities Equipment Transfer Assistive Device None,Gait Belt Orthotic/Prosthetic Devices or Brace: No Transfers Transfer Destination Toilet Transfer Technique ambulated without AD Transfer Ability Level of Assist Standby Assistance Comments Mobility Comments Pt was walking to bathroom when arrived, no AD, stable. Pt communicated no pain but breathing still little challenging especially walking in the hallways with mask which elicits her coughing and some discomfort in back, no scale rating reported. Pt able to sit <> stand from toilet using grab bar for little self support and self hygiene Mod I, used hand animal ride manager due to netting over L UE. Pt was able to ambulate further distance from bathroom to stairs, ascend/descend 3 stairs R HR SBA and back approx 600ft no AD with SBA, w/c follow but not needed. Pt required cuing for slow pacing, upright posture and slow breath expanding breath to allow for decreased respiratory rate and energy conservation with 1 stopped stand rest each distance. Pt stated that does help . Pt requested to lay down when returned to room, due to tiring. Sitting >supine Mod I with HOB flat, she was able to reposition bed herself for comfort. Pt was inclined in bed with call light and all needs in reach when left. Pt stated hoping to go home this afternoon, sister and her are in their camper next to her and able to assist her if needed. Gait Assessment Gait Gait Assistance Required: Standby Assistance Distance (Feet) 600 Able to Maintain Weight Bearing Status Yes During Gait Assistive Devices Assistive Device None,Gait Belt Orthotic/Prosthetic Devices or Brace: No Factors Limiting Gait Function Factors Limiting Gait Function Decreased Activity Tolerance, Pain,Respiratory Distress Comments Gait Comments See mobility comments. Stair Climbing Assessment Evaluation Level of Assist On Stairs Standby Assistance Devices Stair Climbing Assistive Devices Right Railing Technique/Endurance Stair Climbing Direction Ascend and Descend Stair Climbing Technique Step Over Step Number of Steps Climbed 3 Stair Climbing Set # Repetitions (reps) 1 Comments Stair Climbing Comments See mobility comments. PT-Balance Assessment Sitting Balance and Reactions Static Sitting Balance Ability Normal Dynamic Sitting Balance Ability Normal Standing Balance and Reactions Static Standing Balance Ability Good Dynamic Standing Balance Ability Good Device Used without AD M5 PT-IP Objective Assessments Start: 06/08/20 11:57 Freq: NEEDED Status: Active Protocol: Document 06/08/20 10:39 AB (Rec: 06/08/20 12:12 AB [id number]) Orientation Orientation/Cognition Level of Alertness Alert Orientation Name,Place,Situation Safety Awareness Decreased Safety Awareness Gross Range of Motion Lower Extremity ROM Assessment Within Functional Limits Strength Lower Extremity Strength Assessment Within Functional Limits Coordination Assessment Gross Coordination Gross Coordination WNL Sensation Assessment Sensation Gross Sensation WNL Muscle Tone Muscle Tone WNL Yes M6 PT-IP Treatment Start: 06/08/20 11:57 Freq: NEEDED Status: Active Protocol: Document 06/09/20 10:55 SP (Rec: 06/09/20 11:45 SP [id number]) Physical Therapy Treatment Other Treatments Other Treatment Performed Education on upright posture, slow rate diaphramatic breathing and slow pace walking for energy conservation and safe proper breath. M7 PT-IP Assessment and Plan Start: 06/08/20 11:57 Freq: NEEDED Status: Active Protocol: Document 06/09/20 10:55 SP (Rec: 06/09/20 11:45 SP [id number]) PT Summary Assessment and Plan Potential Rehabilitation Potential Good Status of Condition at Evaluation Stable Summary Impairments Pain,ROM,Strength,Balance, Cognition,Bed Mobility, Transfers,Gait,Activity Tolerance Assessment Summary Pt is Mod I during bed mobility, transfer with no AD and room distance gait, requiring SBA with mobility without AD due to c/o feeling SOB during session with O2 sat at 94% at room air. pt lives in [place] but currently staying a friend's camper here in [place], her sister and brother in law in [facility] next to her for assist. Pt able to walk further distance 600 ft no AD and stair mgt 1 HR SBA with occasional cuing for importance of upright posture, slow pacing gait, slow diaphramatic breathing and stop stand rest for energy conservation for recovery, reports helpful. Pt is ok to return home to [facility] with friend and sister to assist her when medically stable. Goals Bed Mobility Goal Independent Transfer Goal Independent Gait Goal Independent Gait Distance 300 Other Goals up/down 5 steps 1 rail SBA (OR home), 3 steps R HR ([facility] camper staying in here). Days to Meet Goals 5 Frequency of Treatment Frequency Of Treatment Once a Day Treatment Plan Physical Therapy Treatment Plan Bed Mobility Training,Transfer Training,Gait Training, Therapeutic Exercise,Balance Retraining,Discharge Planning, Neuromuscular Re-ed Recommendations To Nursing Amount of Assist Needed Standby Assistance Discharge Recommendations PT Discharge Recommendations Home with Assistance Transportation Needs at Discharge Private Vehicle
[2020-06-09] MEDS: FUROSEMIDE 20 MG/2 ML VIAL IV (11:38)
[2020-06-09] MEDS: levoFLOXacin 250 MG TABLET 750 MG PO (11:41)
--- NOTE | 2020-06-09 11:46 | P.DS_ITS ---
History of Present Illness History of Present Illness Date Patient Seen: 06/05/20 Chief complaint: Stomach hurts, hot and cold flashes Narrative: Written by Albert PALOMINO: Ms. Suki De Santiago is a 64-year-old female with a history of hypertension and vestibular migraines who presents to the ER for epigastric pain. The patient states she has been waking in the morning with epigastric pain for approximately 1 month that has been resolved by by eating. Today the patient experienced her typical pain but did not improve with eating and became progressively worse through the day was associated with nausea with no vomiting, chills and diaphoresis. The patient also reports her abdomen is more distended than typical and describes shallow respirations related to the pain. The patient has no prior history of similar episodes and no history of abdominal p roblems. She does not consume alcohol and has no history of diabetes. She does have a history of vestibular migraines reporting no recent headache and has dizziness and varying degrees from a subtle to pronounced on a daily basis. She has sustained no falls or trauma secondary to balance issues. She denies complaints of fevers or feeling hot and reports no known COVID-19 exposures. She denies complaints of chest pain or palpitations. She has shortness of breath breathing shallow due to pain. She is adverse to taking opiates due to side effects and making her ?feel fuzzy in the head?. She has no cough or wheezing. She complains of generalized abdominal tenderness in all quadrants and as mentioned has nausea but no vomiting. Her last bowel movement was 2 days ago the which is her typical bowel habit. She denies urinary urgency, frequency or burning. She uses no assistive devices. Arrival to the ER the patient is afebrile with temperature 98.8?, heart rate of 60, blood pressure 133/80, respiratory rate of 18, saturating 98% on room air. Imaging was completed within on abdominal ultrasound which found no ductal dilatation and a normal gallbladder, pancreas was not well visualized. On CT of the abdomen and pelvis she is found to have pancreatitis with no evidence of pse udocyst or necrosis, no ductal dilatation, mild ascites are noted believed related to acute pancreatitis. On laboratory analysis she has elevated white count of 14.2 with increased neutrophils at 91.7, hemoglobin 15.4, hematocrit of 45.1, platelets 200 of 53. She has a PT of 11.3, INR 1.0 and PTT of 18. On chemistry, her electrolytes are within normal limits she has a BUN of 16 and creatinine 0.72. Her nonfasting glucose is 166. She has a total bilirubin is 0.8, AST of 92, ALT of 77 and alkaline phosphatase of 89. She has an amylase elevated at 3448, lipase a 30,032 and a negative troponin at 0.014. On urinalysis her specific gravity is greater than 1.030, she is positive for ketones, white blood cells, bacteria, leukocyte esterase, trace blood and protein and negative for nitrites. In the ER the patient received 2 L of normal saline and IV normal saline at 250 cc/hour. She is given Rocephin 1 g IV for urinary tract infection. COVID-19 screening is initiated and the patient is ad mitted to the medicine service for acute pancreatitis. Discharge Providers Provider Date of admission: 06/05/20 20:05 Discharge Date: 06/09/20 Consults: 06/05/20 20:14 Consult to Discharge Planning Routine Comment: 06/07/20 10:09 Consult to Dietitian, Adult Routine Comment: Reason For Exam: pancreatitis diet counseling low fat/low res 06/07/20 20:02 Consult to Physical Therapy Evaluate & Treat Comment: Physician Instructions: Evaluate and Treat Discharge provider: Gillian Frey DO Summary Hospital Course Discharge Diagnosis: 1. Acute idopathic pancreatitis with mild ascites, present on admission. Resolved. 2. Acute pneumonitis with probable early bacterial pneumonia, secondary to pancreatitis, unclear if present on admission. Resolving. 3. Probable asymptomatic bacteriuria, present on admission. Stable. 4. Hypertension, chronic, present on admission. Stable. 5. Vestibular migraines, chronic, present on admission. Stable. 6. Menopause on hormone replacement therapy and fibroid uterus, chronic, present on admission. Stable. Hospital Course: Suki De Santiago is a 64-year-old female with a past medical history significant for hypertension, vestibular migraines, and menopause on hormone replacement therapy, who presented to the ED following 1 month of epigastric discomfort in the morning resolved after eating and became unrelenting and progressively painful with associated nausea, chills, diaphoresis and abdominal distension. 1. Acute idopathic pancreatitis with mild ascites, present on admission. Resolved. -Etiology unclear. Patient denies alcohol use. No history of gallstones and no gallstones visualized on CT or ultrasound. Triglycerides normal at 55. LFTs normal. Hydrochlorothiazide has been associated with pancreatitis incidence unknown and patient was weaning off medication therefore discontinued. There is rare incidence of estrogen causing intravascular thrombus and pancreatitis, as well as, losartan causing pancreatitis but less than 1% and very unlikely. -Initial lipase highly elevated at 30,032 and trended down to normal now 273. Continued to monitor lipase daily. -Abdominal ultrasound demonstrated normal gallbladder with no ductal dilatation. -CT abdomen and pelvis with contrast demonstrated pancreatitis with mild ascites related to pancreatitis. No pseudocyst or necrosis. -Continued to slowly advance diet to low-fat/low residue diet which the patient tolerated well. -Discontinued IV fluids due to hypervolemia and increasing ascites and shortness of breath. Continued gentle diuresis as diuretics can propagate pancreatitis and received furosemide 20 mg IV x 4 with good diuresis net - 400 mL. Continue gentle diuresis with furosemide 20 mg IV x1 today as diuretics can propagate pancreatitis. Continue to monitor electrolytes closely and replete as necessary. -Continued pain control with acetaminophen 650 mg every 6 hours as needed for mild pain, Toradol 50 mg every 4 hours as needed for mild pain, and oxycodone 5 mg every 4 hours as needed for severe pain. -MRCP extending to pelvis to assess uterus demonstrated interstitial edematous pancreatitis, no loculated peripancreatic fluid collection, no necrosis, no pancreatic ductal dilatation, large heterogeneous uterine fibroid measuring 10.3 cm, no ovarian mass or cystic lesion, no adenopathy, small to moderate-sized bilateral pleural effusions, mild ascites that is decreased. 2. Acute pneumonitis with probable early bacterial pneumonia, secondary to p ancreatitis, unclear if present on admission. Resolving. -Patient continued to have worsening leukocytosis, became tachycardic, with new cough, with chest x-ray demonstrating blunted costophrenic angles and possibly early developing pneumonia. Pneumonia secondary to splinting from pain of pancreatitis and secondary inflammation. Continue diuresis as above for hypervolemia from IV fluids. -Received levofloxacin 750 mg daily x2 doses with improvement in leukocytosis and overall breathing. Continue levofloxacin 750 mg x 5 additional days to treat probable early pneumonia. -COVID-19 negative. 3. Probable asymptomatic bacteriuria, present on admission. Stable. -Patient denies dysuria, urgency, or hematuria. She does endorse frequency that she relates to her pessary and occasional hesitancy. -Initial WBC elevated at 14.2 and procalcitonin negative x2. WBC trending down now 12.7. Continue to monitor WBC daily. -Urinalysis appeared grossly infected with urine culture preliminary growing mixed urogenital luna and possibly Gardnerella. -Discontinued ceftriaxone as patient has been adequately treated for UTI which is unlikely as urine culture had no growth and appears to be asymptomatic bacteriuria. 4. Hypertension, chronic, present on admission. Stable. -History of hypertension taking losartan 50 mg/hydrochlorothiazide 12.5 mg daily. The patient reports her providers attempting to wean off hydrochlorothiazide. No presence of peripheral edema on exam. -Continued home losartan 50 mg daily. Discontinue hydrochlorothiazide as patient was weaning off and it has been associated with pancreatitis. Ordered labetolol 10 mg IV every 6 hours as needed for sustained SBP >180 mmHg. -Continued to monitor blood pressure closely. 5. Vestibular migraines, chronic, present on admission. Stable. -Patient denies complaints of headaches but has consistent vestibular manifestations described as disequilibrium that varies from slight to marked symptoms daily. No history of falls or trauma and uses no assist device. -Continued home amitriptyline 12.5 mg daily and meclizine 25 mg daily. The patient also takes Aimovig every month with last dose 05/14/2020. 6. Menopause on hormone replacement therapy and fibroid uterus, chronic, present on admission. Stable. -Discontinued estradiol and progesterone as patient was titrating off, there has been some incidence of estrogen driven pancreatitis due to intravascular thrombus, and it places the patient at high risk of VTE especially in lieu of long distance traveling. -Recommend evaluation of fibroid uterus per patient's rag inspector. Exam Vital Signs (past 8 hours): - 06/09/20 04:50 06/09/20 08:00 06/09/20 09:15 Temperature 96.6 F L 97.7 F Pulse Rate 103 H 90 Respiratory Rate 16 18 Blood Pressure 146/83 H 146/87 H 146/87 H Pulse Oximetry 93 92 06/09/20 10:11 Temperature Pulse Rate Respiratory Rate Blood Pressure Pulse Oximetry 98 Oxygen Delivery Method Room Air Oxygen Flow Rate 0 Narrative Exam Narrative: General: Older female sitting in bed and in no acute distress, well-developed, well-nourished, significantly flat affect but otherwise appropriately interactive. HEENT: Normocephalic, atraumatic. External ears without defect. Pupils equal, round, and reactive to light. Anicteric sclerae, moist conjunctivae, and no lid lag. Oropharynx free of erythema and cobble stoning with moist mucosa. Neck: Supple with full range of motion. No jugular venous distension. No lymphadenopathy or thyromegaly. Cardiovascular: Regular rhythm, mild tachycardia, without murmurs, rubs, or ga llops appreciated. Pulmonary: Diminished throughout but clear to auscultation bilaterally with decreased breath sounds at bases bilaterally without crackles, wheezes, or rhonchi. Patient has cough with deep breathing. Mild splinting present but resolving. Abdomen: Soft, mild distension improving, mild tenderness in epigastrium but essentially resolved, bowel sounds present. No hepatosplenomegaly or masses appreciated. Extremities: No clubbing, cyanosis, or edema. Skin: Normal temperature, turgor, and texture; no rash, ulcers, or subcutaneous nodules appreciated. Neurological: Cranial nerves grossly intact. Psychiatric: Normal mood and significant flat affect. Alert and oriented to person, place, and time. Objective Labs Result Diagrams: 06/09/20 05:05 06/09/20 05:05 Labs: Laboratory Results - last 24 hr 06/09/20 06/09/20 06/09/20 05:05 05:05 05:05 WBC 15.9 H RBC 3.95 L Hgb 12.1 Hct 35.6 L MCV 90.1 MCH 30.7 MCHC 34.1 RDW 13.6 Plt Count 200 Neut % (Auto) 81.6 H Lymph % (Auto) 7.1 L Winston % (Auto) 8.8 Eos % (Auto) 1.9 L Baso % (Auto) 0.6 Neut # (Auto) 85678 H Lymph # (Auto) 1100 Winston # (Auto) 1400 H Eos # (Auto) 300 Baso # (Auto) 100 Sodium 133 L Potassium 3.9 Chloride 101 Carbon Dioxide 28 BUN 12 Creatinine 0.65 Estimated GFR > 60.0 BUN/Creatinine Ratio 18.5 Glucose 127 H Calcium 7.8 L Magnesium 1.8 Total Bilirubin 0.9 AST 22 ALT 19 Alkaline Phosphatase 71 Total Protein 6.3 Albumin 3.0 L Globulin 3.3 Albumin/Globulin Ratio 0.9 L Lipase 273 Discharge Plan Discharge Plan Patient Disposition: Home Discharge comment: You are being discharged home. You had pancreatitis from unknown cause. Your hydrochlorothiazide has been associated with pancreatitis and since you are weaning off this medication anyways this has been discontinued. You may continue to advance your diet slowly from a low-fat low residue diet to normal over the next several days to week. Please try to stay well hydrated. Your pancreatitis caused inflammation of your lungs called pneumonitis and probable early pneumonia which you are being treated with levofloxacin 750 mg for 5 additional days to complete 7 days total of treatment. Please follow-up with your primary care provider in [place] regarding your hospitalization. You may want to get repeat imaging of your pancreas in 6 weeks to assess for fluid collections and complete resolution. Your hormone replacement therapy has been discontinued as your titrating off of this and it can predispose you to blood clots and potentially cause pancreatitis due to blood clots. Please try to stay active and avoid prolonged immobilization while your traveling. Discharge orders & Medications Prescriptions: New levofloxacin 250 mg Tablet 750 mg PO DAILY Qty: 5 RF: 0 Continued amitriptyline 10 mg Tablet 12.5 mg PO DAILY RF: 0 meclizine 25 mg Tablet 25 mg PO DAILY RF: 0 losartan 25 mg Tablet See Rx Instructions .ROUTE .COMPLEX RF: 0 Aimovig Autoinjector 70 mg/mL Auto-Injector 70 mg SUBCUT QMONTH RF: 0 Discontinued estradiol 1 mg Tablet 1 mg PO DAILY RF: 0 progesterone 2 mg PO DAILY RF: 0 Diet/Activity/Treatments Diet: Diet as Tolerated and Low-fat Diet comment: low fat, low residue and advance slowly as tolerated over next couple days Activity: Activity as tolerated Visit Report/Discharge Packet Instructions: Acute Pancreatitis, Fat-Restricted Diet, Low-Fiber/Low-Residue Diet, DI for Pneumonia -- Adult Quality VTE Deep Vein Thrombosis/Pulmonary Embolism Present on Admission: No
--- NOTE | 2020-06-09 13:53 | CM.DPC ---
DCP Discharge Home Per MD, pt medically stable to d/c home today with sister and no identified barriers to discharge. SW met bedside with pt during MD rounds this morning and pt agreeable with d/c home with sister prior to return to [place]. Pt does not express any concerns and is agreeable with d/c home today. Plan: Patient to d/c home later today via sister POV and no SW needs at this time. RIA Cortes
--- NOTE | 2020-06-09 14:40 | PC.NURSE ---
Pt is dressed and ready for discharge home with her Sister. Pt IV removed. Reviewed d/c information, discussed d/c meds, time of last dose, reviewed stroke education, diet, and follow up. Pt denies further questions and was taken out to POV via w/c by [employer] with Sister and all belongings.
== END 2020-06-09 14:43 | disposition home or self-care (01) | DRG 438 ==
LOC: ED 14:55 → AC 20:06
PROVIDERS: Internal Medicine; Admitting Provider Nurse Practitioner Adult Health; Emergency Provider Nurse Practitioner Family; Referring Provider Nurse Practitioner Family; Visit Provider Nurse Practitioner Adult Health
DX: K85.00 Idiopathic acute pancreatitis without necrosis or infection (principal); J15.9 Unspecified bacterial pneumonia; R18.8 Other ascites; R82.71 Bacteriuria; I10 Essential (primary) hypertension; G43.809 Other migraine, not intractable, without status migrainosus; Z79.890 Hormone replacement therapy; Z11.59 Encounter for screening for other viral diseases
CPT/HCPCS: 36415; 71045; 71046; 72197; 74177; 76705; 80053; 80061; 81001; 82150; 82550; 82962; 83036; 83690; 83735; 84145; 84484; 85025; 85610; 85730; 87086; 87635; 93005; 93010; 94760; 94762; 96361; 96365; 96375; 97116; 97161; 99284; A9579; J0360; J0696; J1644; J1885; J1940; J2405; Q9967